=== PATIENT | male | born 1950 | race Caucasian/White ===

== ENCOUNTER 2019-07-10 09:39 | Outpatient (CLI) | payer MEDICARE, OTHER, SELFPAY ==
--- NOTE | 2019-07-10 08:52 | DI.RAD_ITS ---
EXAM: XR SHOULDER LT COMPLETE 2+V INDICATION: Left shoulder injury. COMPARISON: No exams were available for comparison TECHNIQUE: 2D digital imaging was performed. FINDINGS: There is mild spurring at the AC joint and tip of the acromion. Moderate spurring is seen at the gle noid. Glenohumeral joint space is well maintained. The humeral head is normally positioned. IMPRESSION: [id number] degenerative changes.
== END 2019-07-10 09:59 ==
PROVIDERS: PCP Family Medicine; Referring Provider Family Medicine; Visit Provider Student in an Organized Health Care Education/Training Program
DX: M25.512 Pain in left shoulder (principal); S49.92XA Unspecified injury of left shoulder and upper arm, initial encounter; M19.012 Primary osteoarthritis, left shoulder; X58.XXXA Exposure to other specified factors, initial encounter
CPT/HCPCS: 99204; 73030

== ENCOUNTER 2019-07-24 01:35 | Outpatient (CLI) | payer MEDICARE, OTHER, SELFPAY ==
--- NOTE | 2019-07-24 09:57 | DI.MRI_ITS ---
EXAM: MR UPPER JOINT LT WO CLINICAL HISTORY: Left shoulder dislocation concern for rotator cuff tear, S43.005A. TECHNIQUE: Multiplanar multisequence MRI was performed. COMPARISON: XR SHOULDER LT COMPLETE 2+V from 07/10/2019 FINDINGS: Supraspinatus tendon: There is a complete tear with retraction to the level of the acromioclavicular joint. Infraspinatus tendon: There is a large tear of the infraspinatus tendon with retraction. Teres minor tendon: There is a full-thickness large tear of the teres minor tendon with minimal retra ction. Subscapularis tendon: There is a complete tear of the subscapularis tendon with retraction to the lev el of the glenohumeral joint. Biceps tendon: The biceps tendon is intact but displaced medial to the lesser tuberosity. Findings c onsistent with a tear of the transverse ligament. Glenoid labrum: Hyperintense signal seen beneath the anterior labrum suspicious for tear. The articular cartilage at the glenohumeral joint: Appears well maintained. Coracoclavicular ligament: Unremarkable. Bones: Mild hyperintense signal is seen at the posterior aspect of the humeral head. No evidence of an occult fracture or avascular necrosis is seen. Soft tissues: There is fluid seen in the glenohumeral joint, subacromial and subdeltoid bursa. There is edema seen in the soft tissues around the shoulder. IMPRESSION: 1. Tears involving the supraspinatus, subscapularis, infraspinatus and teres minor tendons. 2. Tear of the transverse ligament with medial displacement of the biceps tendon. 3. Hyperintense signal seen beneath the anterior labrum suspicious for tear.
== END 2019-07-24 01:55 ==
PROVIDERS: PCP Family Medicine; Visit Provider Student in an Organized Health Care Education/Training Program
DX: S43.005A Unspecified dislocation of left shoulder joint, initial encounter (principal); M75.102 Unspecified rotator cuff tear or rupture of left shoulder, not specified as traumatic; S43.432A Superior glenoid labrum lesion of left shoulder, initial encounter
CPT/HCPCS: 73221

== ENCOUNTER → 2019-07-31 08:35 | Outpatient (BNVA) | payer MEDICARE, OTHER, SELFPAY | PROVIDERS: PCP Family Medicine; Referring Provider Family Medicine; Visit Provider Student in an Organized Health Care Education/Training Program | DX: M75.52 Bursitis of left shoulder; M75.42 Impingement syndrome of left shoulder; S43.005D Unspecified dislocation of left shoulder joint, subsequent encounter; S46.012D Strain of muscle(s) and tendon(s) of the rotator cuff of left shoulder, subsequent encounter; M75.22 Bicipital tendinitis, left shoulder; W01.0XXD Fall on same level from slipping, tripping and stumbling without subsequent striking against object, subsequent encounter | CPT/HCPCS: 99215 ==

== ENCOUNTER 2019-07-31 09:54 | Outpatient (CLI) | payer MEDICARE, OTHER, SELFPAY ==
[2019-07-31 11:00] LABS: Hemoglobin A1C 7.5 % (3.8-5.6)
== END 2019-07-31 10:14 ==
PROVIDERS: PCP Family Medicine; Visit Provider Student in an Organized Health Care Education/Training Program
DX: E11.9 Type 2 diabetes mellitus without complications (principal)
CPT/HCPCS: 36415; 99215; 83036

== ENCOUNTER → 2019-08-14 14:00 | Outpatient (BNVA) | payer MEDICARE, OTHER, SELFPAY | PROVIDERS: PCP Family Medicine; Referring Provider Family Medicine; Visit Provider Student in an Organized Health Care Education/Training Program | DX: S46.012D Strain of muscle(s) and tendon(s) of the rotator cuff of left shoulder, subsequent encounter (principal); S43.005D Unspecified dislocation of left shoulder joint, subsequent encounter; W01.0XXD Fall on same level from slipping, tripping and stumbling without subsequent striking against object, subsequent encounter; M75.52 Bursitis of left shoulder; M75.42 Impingement syndrome of left shoulder; M75.02 Adhesive capsulitis of left shoulder; M75.22 Bicipital tendinitis, left shoulder | CPT/HCPCS: 99215 ==

== ENCOUNTER 2019-08-22 05:56 | Day surgery (SDC) | payer MEDICARE, OTHER, SELFPAY ==
[2019-08-22] VITALS (7 sets, daily range): BP systolic 108–142; BP diastolic 55–84; PULSE 78–101; RESP 16–22; TEMP 36.2–36.6; O2SAT 94–98
[2019-08-22] MEDS: Lactated Ringers 1,000 ML 80 ML IV ×2 (06:41→12:32)
[2019-08-22] MEDS: ceFAZolin 3,000 MG in Normal Saline 100 ML 200 MG IVPB (07:35)
[2019-08-22] MEDS: Tranexamic Acid 1,000 MG/10 ML VIAL 1000 MG ×2 (09:09→11:57)
[2019-08-22] MEDS: EPINEPHrine 30 MG/30 ML VIAL (12:30)
--- NOTE | 2019-08-22 14:34 | W.PM.DSUDISC ---
Discharge Plan Disposition Patient Disposition: HOME Condition: Stable Discharge Details Reason For Visit: Left shoulder surgery Attending Provider: Anjel Schuler Primary Care Provider: Arianna Gillespie Home Meds and New Rx's Prescriptions: New naproxen 250 mg tablet 250 - 500 mg PO BID PRN (Reason: Moderate pain or swelling) Qty: 60 RF: 0 aspirin 81 mg tablet,delayed release (DR/EC) 81 mg PO DAILY 14 Days Qty: 14 RF: 0 oxycodone 5 mg tablet 5 - 10 mg PO Q4H PRN (Reason: moderate to severe pain) Qty: 22 RF: 0 Continued atorvastatin 10 mg tablet 10 mg PO DAILY RF: 0 glimepiride 2 mg tablet 2 mg PO DAILY RF: 0 metformin 1,000 mg tablet 1,000 mg PO BID RF: 0 lisinopril 5 mg tablet 5 mg PO DAILY RF: 0 dorzolamide 2 % drops 1 drp OP TID RF: 0 timolol maleate 0.5 % drops, once daily 1 drp OP DAILY RF: 0 diclofenac sodium [Voltaren] 1 % gel 2 gm TP QID RF: 0 B-Complex With B-12 2.5 mg-2.5 mg- 5 mg-100 mcg tablet 1 tab PO DAILY RF: 0 omega-3 fatty acids [Fish Oil Concentrate] 1,000 mg capsule 1,000 mg PO BID RF: 0 alpha lipoic acid 600 mg capsule 600 mg PO ONCE RF: 0 cholecalciferol (vitamin D3) 2,000 unit tablet 2,000 unit PO DAILY RF: 0 tamsulosin [Flomax] 0.4 MG capsule 0.4 mg PO HS Qty: 90 RF: 3 pregabalin [Lyrica] 75 MG capsule 150 mg PO TID RF: 0 naproxen 250 mg tablet 250 mg PO BID PRN (Reason: pain) Qty: 60 RF: 0 tramadol 50 mg tablet 100 mg PO QHS Qty: 14 RF: 0 cannabidiol 100 mg/mL Solution RF: 0 Discharge Instructions Additional Instructions: Surgery: Shoulder arthroscopy with massive open 4-tendon rotator cuff repair and biceps tenodesis Activity: You should keep your arm at your side on the abduction pillow in a neutral position at all times except for physical therapy. Do not try to lift or raise your arm using your own muscles. You should use the sling whenever you are out of the house. You may have to adjust the abduction pillow or remove it for comfort. At home it is best to remove the sling and rest the arm on a pillow at your side or support the operative side with your other hand. A physical therapy prescription will be provided separately today. Prescriptions: Aspirin 81 mg take 1 daily to prevent a blood clot for 2 weeks Naproxen 250 mg take 1-2 every 12 hours with a meal as needed for moderate pain (Or ibuprofen instead of naproxen but not at the same time) Oxycodone 5 mg take 1-2 every 4-6 hours as needed for severe pain. May switch to tramadol for less severe pain You may use [id number] Tylenol (acetaminophen) as needed for mild pain. These pain medications may be taken all at once or in different combinations as needed. Also, recommend Colace (docusate) as a stool softener as surgery and pain medicine cause constipation. Dressings: Leave dressing in place until follow-up. Keep clean and dry. Follow-up: 10-[address] Schuler Please call the office during business hours with any questions or concerns. Let us know right away if you develop any redness, drainage, fevers, chest pain, or trouble breathing. Do not drink alcohol or drive for at least 24 hours after anesthesia. Referrals: Anjel Schuler MD [ [facility] STAFF PHYSICIAN] - Discharge Orders Discharge Orders: Discharge Order (Routine); Ordered 08/22/19 Ordered By: Anjel Schuler DS: Diagnosis Discharge Diagnosis (1) Dislocation of left shoulder joint: Status: Acute (2) Left rotator cuff tear: Status: Acute (3) Bursitis of left shoulder: Status: Acute (4) Impingement syndrome of left shoulder: Status: Acute (5) Adhesive capsulitis of left shoulder: Status: Acute (6) Bankart lesion of left shoulder: Status: Acute (7) Tendinitis of long head of biceps brachii of left shoulder: Status: Acute
--- NOTE | 2019-08-22 15:17 | ROE_ITS ---
Date of service: 08/22/19 Time of Service: 14:35 Operative Note Operative Note DATE OF PROCEDURE: 08/22/19 PRE-OP DIAGNOSIS: Left: 1. Rotator cuff tear:massive involving all 4 tendons with significant medial retraction past the glenoid 2. LHB tendinopathy with dislocation into the glenohumeral joint 3. Bursitis 4. Adhesive capsulitis 5. Shoulder dislocation 6. Bankart labral lesion POST-OP DIAGNOSIS: same PROCEDURE: Left: 1. Arthroscopic extensive debridement, CPT# 06066. This involved using arthroscopic hand instruments, power instruments, and radiofrequency instruments to debride areas of labral tearing, synovitis, and chondromalacia within the glenohumeral joint anteriorly and posteriorly as well as debriding the anterior labral lesion and releasing the biceps from the superior labral anchor. 2. Subacromial decompression without acromioplasty, CPT# 61264. This involved using arthroscopic power instruments and a radiofrequency wand to complete a bursectomy and remove significant hemorrhagic, thickened, and scar bursa and adhesions about the humeral head that would be difficult to reach through the open incision especially posteriorly superiorly and medially. 3. Open biceps tenodesis, CPT# 20431. This involved reattaching the long head of the biceps tendon to the proximal humerus in situ to the superior margin of the pectoralis major tendon at the correct tension. 4. Open rotator cuff repair. Modifier #22. This involved open repair through the deltopectoral interval of the full-thickness, retracted subscapularis, supraspinatus, infraspinatus, and teres minor rotator cuff tendons using numerous anchors and sutures to reattach the the entire rotator cuff back to the footprint of the lesser and greater tuberosity. This tear meets all criteria to be defined as a massive tear as it involved all 4 rotator cuff tendons (supraspinatus, infraspinatus, teres minor, and subscapularis) with significant retraction medially past the level of the glenoid. The severity of this injury requires significantly greater complexity of repair, patient counseling, and postoperative management and rehabilitation planning and associated with substantially more surgical time, effort, and implants (approximately 4 times the usual amount of each) and associated with significant greater risk of complication including stiffness and failure. 5. Manipulation under anesthesia. The patient had significant adhesive capsulitis from from his injury. Even after working with home exercise program and formal supervised physical therapy, his passive supine forward flexion was limited to approximately 95 degrees on the operative side. Gentle steady forward flexion was used with the scapula stabilized to release adhesions which were palpable and gradually the arm stiffness softened in the arm and reached a symmetrical position with approximately 135 degrees of forward flexion equal to the contralateral side. After the manipulation there was also full symmetric internal rotation and external rotation. The high school assistant principal was medically required in order to help assist in techniques above, which require positioning the arm, holding the arthroscope, and manipulating 2 to 4 instruments and sutures at the same time. This cannot be done without the help of an experienced high school assistant principal. SURGEON: Anjel Schuler SECURITIES DEALER: Dominik Casey ANESTHESIA: GETA, regional and local ESTIMATED BLOOD LOSS: 350 PATHOLOGY: none sent COMPLICATIONS: None Patient was transported to: PACU Patient's condition: stable Implants: Arthrex: 4.75mm SwiveLocks x 10 Indications: The patient was diagnosed with the above conditions and appropriately indicated for surgical intervention. Please see complete medical record for details. Findings: Exam under anesthesia: Limited passive forward flexion in the supine position to 95 degrees. After manipulation full symmetric forward flexion 135 degrees. Also full symmetric internal rotation external rotation rate of 60 degrees each. Glenohumeral joint: Dislocated long head of the biceps tendon within the gle nohumeral joint. Anterior labral nondisplaced Bankart lesion. Extensive chondromalacia anteriorly and superiorly from the dislocated biceps tendon. Chondromalacia posterior humeral head likely from the traumatic anterior dislocation. Severe, extensive synovitis throughout anteriorly, superiorly, posteriorly, and so she was scarring axillary recess. No visible intact rotator cuff. Subacromial space: Significant, extensive hemorrhagic bursitis associate with significant scarring anteriorly, superiorly, and posteriorly. All rotator cuff tendons retracted as a sleeve of tissue past the level of the glenoid with a completely denuded humeral head. Procedure Description: The patient was taken to the operating room and transferred to the operating room table. General anesthesia was induced. While under anesthesia, bilateral shoulders were examined. The patient was positioned in the beachchair position. All bony prominences were well-padded. Preoperative antibiotics were administered. The shoulder was prepped and draped in the usual sterile fashion. The correct patient, procedure, and side of the procedure were all verified prior to incision. Starting through the posterior portal a standard complete diagnostic arthroscopy was performed of the glenohumeral joint including inspection of the long head of the biceps, anterior and superior labrum, subscapularis tendon, supraspinatus and infraspinatus tendons, and axillary recess. The glenoid and humeral head cartilage as well as the posterior labrum were inspected from an anterior viewing portal. Significant findings noted above. The biceps tendon was tenotomized from the labrum using arthroscopic scissors. The anterior labral nondisplaced Bankart lesion was debrided with a shaver. Decision was made not to repair this labral tear given significant pre-existing shoulder stiffness and inevitable stiffness and not instability at result from this massive repair. Scar tissue synovitis was sequentially removed anteriorly superiorly and posteriorly. The arthroscope was redirected in the subacromial space which in this instance meant above significant thickened hemorrhagic bursa that gave the appearance of rotator cuff tendon though it was obviously not rotator cuff at all as had no structural integrity. A lateral 50 yard line lateral portal was created. A combination of power instruments and a radiofrequency ablator were used to debride bursitis anteriorly, posteriorly, and laterally as well as expose the undersurface of the acromion. No no significant bone spur was noted and no bony acromioplasty was done. The coracoacromial ligament was preserved. Working from posteriorly and laterally this extensive bursa scarring was removed to expose the humeral head that had no rotator cuff tendon attachment on it anteriorly superiorly or posteriorly. The lesser and greater tuberosities were clearly visible. Cuff mobilizers and graspers were used to localize the rotator cuff which was entirely retracted as 1 whole sleeve medial to the glenoid and had limited mobility. At this point the decision was made to convert to open repair given the severity of this injury and the significantly retracted and scarred rotator cuff tendons and difficulty with visualization given significant failure and hemorrhagic bursa and scarring throughout. Shoulder was drained of arthroscopic fluid. 1 g of TXA was administered. A standard deltopectoral incision was used. Care was taken to mobilize and protect the cephalic vein medially with the deltoid. There is significant scarring and adhesions overlying the proximal humerus including the long head the biceps tendon. There is no visible rotator cuff tendon. The biceps tendon was notified at the superior margin of the pectoralis major tendon and tenodesed with #2 FiberWire in a [id number] fashion in situ here. The remainder of the biceps tendon was dislocated medially but used to identify a safe rotator interval approach to begin removing more scar tissue and bursa. Finger dissection was used to palpate the the coracoid and identify a significantly retracted subscapularis tendon margin. #2 FiberWire was used to tag the leading edge of the subscapularis in a Bebeto-Jamal fashion. These sutures were used as traction and finger blunt dissection as well as careful Gutierrez dissection was used to release the subscapularis anteriorly and posteriorly. As excursion improved additional #2 FiberWire sutures were used in Bebeto-Jamal suture fashion. Sutures were placed from the most inferior margin of the identifiable subscapularis up to the rotator interval. At this point there was enough excursion for the subscapularis that the supraspinatus was becoming visible. The lesser and greater tuberosity as well as the entire rotator cuff footprint was debrided of scar tissue and fibrous debris using a rongeur. In a similar fashion #2 FiberWire Bebeto-Jamal stitches were thrown in the supraspinatus and these were used as traction stitches while digital release and Gutierrez release was performed above and below the tendon. Additional traction sutures and supraspinatus allowed reduction provisionally to its footprint and also started to bring the infraspinatus into view. With the humeral head subluxed anteriorly and an internal rotation the infraspinatus was similarly tagged with #2 Fi berWire. The scorpion suture passer was used to pass fiber tape in an inverted horizontal mattress fashion starting with the supraspinatus and then with the infraspinatus. These were additionally uses traction sutures and releasing was completed. I felt we had the majority of the subscapularis, supraspinatus, and infraspinatus well sutured and released. Using scorpion to pass additional FiberWire and fiber tape in a mattress ripstop fashion through the most posterior rotator cuff tissue I could access which likely represented teres minor. The arm was positioned in a more neutral position with some abduction for the medial row repair. Without placing undue tension on the rotator cuff 4 medial row anchors were placed starting with the anterior supraspinatus and working posteriorly to the infraspinatus. The most posterior likely teres minor anchor was placed through a stab percutaneous portal more posteriorly. Each of these anchors contained at least 2 pairs of #2 FiberWire Bebeto-Jamal sutures. The sutures were placed near the articular margin anteriorly and then more was left between the suture anchors and the articular margin as went posteriorly to reflect normal anatomy. The FiberWire that was loaded in the anchors was then passed using the scorpion from deep to superficial just medial to each respective FiberTape horizontal mattress suture for additional ripstop fixation. Each FiberTape pair and corresponding medial FiberWire was then secured to a lateral row anchor going from posterior to anterior except for the most posterior pair that were joined together to the posterior most lateral row anchor for total of 3 additional lateral row anchors. Achieving compression of the rotator cuff tendon over the majority of the posterior and superior rotator cuff footprint as post of the reduction reduction had already been achieved through the medial row anchors. At this point the arm was returned to a more neutral position taking care to ensure the arm was in approximately 20 degrees of external rotation for the later subscapularis repair. Attention was then turned back to the lesser the subscapularis repair. Exposure of the subscapularis was now assisted by the reduced superior rotator cuff. Subscapularis had 2 pairs of #2 FiberWire Bebeto-Jamal sutures as well as a mattress fiber tape and a superior margin. This was repeated more inferiorly. Each pair of 4 fiber wires was secured to a superior and inferior medial row subscapularis anchor. The preloaded FiberWire sutures could not be passed under the rotator cuff as it was so well secured at this point and there was no more rotator cuff defect so they were removed. Both pairs subscapularis mattress fiber tapes were brought over to a lateral row lesser tuberosity anchor. The repair was inspected from anteriorly superiorly and posteriorly throughout the humeral head was covered with a well attached, secure rotator cuff tendon. The arm was ranged from 50 degrees of external rotation to 90 degrees of abduction and 90 degrees of forward flexion and the rotator cuff repair did not limit this motion, was well secured, and appeared to have good compression over all the footprints. There is no further instability or anterior subluxation dislocation. The arm was returned to the side and the wound was copiously irrigated with normal saline. 1 g of vancomycin powder was distributed deeply about the wound. 40 cc of 0.25% bupivacaine containing epinephrine was infiltrated about the incision. Antibiotics and TXA have been readministered at the appropriate time patterson. The deltopectoral interval was allowed to close itself had good apposition of the tissues the cephalic vein was not traumatized. Subcutaneous tissue was closed using 2-0 Monocryl in a buried interrupted fashion. Skin was closed using 3-0 Monocryl in a buried subcuticular running fashion. Skin glue was applied over the incision. All portal sites were closed using 3-0 Monocryl in a buried fashion and covered with Steri-Strips on Mastisol 4 x 4 gauze and Tegaderm. A silver impregnated Band-Aid was placed over the anterior incision. The arm was carefully placed into a sling with abduction pillow to keep the shoulder in neutral position and reduce tension on the rotator cuff. The patient awoke from anesthesia without complication and was transferred to the recovery room in a stable condition
[2019-08-22] MEDS: Lidocaine 2% Jelly 11 ML SYR 22 ML UR (17:00)
--- NOTE | 2019-08-22 17:38 | NUR.NOTE ---
Addendum entered by Cody Palomo 08/22/19 18:08: Leg bag attached, education on martin given. Demonstration on how to empty martin given to Mira and pt. Original Note: 4 unsuccessful catheterization attempts, call made to speciality clinics for assistance in martin placement. Pt. martin catheter placed by Sammi Kennedy. [address] Schuler ordered martin to go home with pt., and referral to Dr. Garcia's office to be made by ortho office. Pt. to followup with Urology, and Ortho tomorrow 08/23/19. All in agreeance of plan. Nursing Note:
== END 2019-08-22 18:10 | disposition home or self-care (01) ==
PROVIDERS: PCP Family Medicine; Visit Provider Student in an Organized Health Care Education/Training Program
PROC: (CPT 29827; principal; 2019-08-22 07:30)
PROC: (CPT 23430; 2019-08-22 07:30)
DX: S46.012A Strain of muscle(s) and tendon(s) of the rotator cuff of left shoulder, initial encounter (principal); S43.432A Superior glenoid labrum lesion of left shoulder, initial encounter; S46.192A Other injury of muscle, fascia and tendon of long head of biceps, left arm, initial encounter; M75.52 Bursitis of left shoulder; M75.02 Adhesive capsulitis of left shoulder; S43.005D Unspecified dislocation of left shoulder joint, subsequent encounter; W17.89XA Other fall from one level to another, initial encounter; S43.492A Other sprain of left shoulder joint, initial encounter; M94.212 Chondromalacia, left shoulder; Z53.33 Arthroscopic surgical procedure converted to open procedure; E11.9 Type 2 diabetes mellitus without complications; G89.18 Other acute postprocedural pain
CPT/HCPCS: 23430; 23410; 29823; 29826; 23700; C1713; 76942; L3670; J0690; J1100; J1885; J2001; J2250; J2370; J2405; J2704

== ENCOUNTER → 2019-08-26 09:05 | Outpatient (BNVA) | payer MEDICARE, OTHER, SELFPAY | PROVIDERS: PCP Family Medicine; Referring Provider Family Medicine; Visit Provider Nurse Practitioner Gerontology | DX: N99.89 Other postprocedural complications and disorders of genitourinary system (principal) | CPT/HCPCS: 99202; 99212; 99213 ==

== ENCOUNTER → 2019-09-03 09:33 | Outpatient (BNVA) | payer MEDICARE, OTHER, SELFPAY | PROVIDERS: PCP Family Medicine; Referring Provider Family Medicine; Visit Provider Student in an Organized Health Care Education/Training Program | DX: S43.005D Unspecified dislocation of left shoulder joint, subsequent encounter (principal); S46.012D Strain of muscle(s) and tendon(s) of the rotator cuff of left shoulder, subsequent encounter; M75.52 Bursitis of left shoulder; M75.42 Impingement syndrome of left shoulder; M75.02 Adhesive capsulitis of left shoulder; S43.492A Other sprain of left shoulder joint, initial encounter; M75.22 Bicipital tendinitis, left shoulder ==

== ENCOUNTER → 2019-11-14 10:12 | Outpatient (BNVA) | payer MEDICARE, OTHER, SELFPAY | PROVIDERS: PCP Family Medicine; Visit Provider Student in an Organized Health Care Education/Training Program | DX: S46.012D Strain of muscle(s) and tendon(s) of the rotator cuff of left shoulder, subsequent encounter (principal); M75.52 Bursitis of left shoulder; M75.42 Impingement syndrome of left shoulder; M75.22 Bicipital tendinitis, left shoulder; S43.005D Unspecified dislocation of left shoulder joint, subsequent encounter; M75.02 Adhesive capsulitis of left shoulder; S43.492D Other sprain of left shoulder joint, subsequent encounter; X58.XXXD Exposure to other specified factors, subsequent encounter ==

== ENCOUNTER 2019-12-24 14:53 | Outpatient (CLI) | payer MEDICARE, OTHER, SELFPAY ==
--- NOTE | 2019-12-24 14:50 | DI.RAD_ITS ---
EXAM: XR SHOULDER LT COMPLETE 2+V CLINICAL HISTORY: SHOULDER PAIN TECHNIQUE: COMPARISON: CR XR SHOULDER LT COMPLETE 2+V from 07/10/2019 FINDINGS: Two views were obtained. Note is made elongated calcifications projected posterior to humeral. Ther e are lucencies in the humeral head suggesting prior surgical procedure, please correlate clinically. Small calcific or ossific radiodensities also seen adjacent to supraspinatus insertion. Mild stuart nal osteophyte formation glenoid and humeral head noted. Mild hypertrophic changes of the AC joint n oted. IMPRESSION: Degenerative changes, presumed postsurgical changes. Please correlate clinically.
== END 2019-12-24 15:13 ==
PROVIDERS: PCP Family Medicine; Referring Provider Family Medicine; Visit Provider Student in an Organized Health Care Education/Training Program
DX: M25.512 Pain in left shoulder (principal); M19.012 Primary osteoarthritis, left shoulder; S43.005D Unspecified dislocation of left shoulder joint, subsequent encounter; S46.012D Strain of muscle(s) and tendon(s) of the rotator cuff of left shoulder, subsequent encounter; S43.492D Other sprain of left shoulder joint, subsequent encounter; X58.XXXD Exposure to other specified factors, subsequent encounter; M75.52 Bursitis of left shoulder; M75.42 Impingement syndrome of left shoulder; M75.02 Adhesive capsulitis of left shoulder; M75.22 Bicipital tendinitis, left shoulder
CPT/HCPCS: 99214; 73030

== ENCOUNTER 2019-12-27 10:13 | Outpatient (CLI) | payer MEDICARE, OTHER, SELFPAY ==
--- NOTE | 2019-12-27 09:30 | DI.MRI_ITS ---
EXAM: MR UPPER JOINT LT WO CLINICAL HISTORY: concern for significant re-tear of RCR,S/P MASSIVE ROTATOR CUFF REPAIR. TECHNIQUE: Multiplanar multisequence MRI was performed. COMPARISON: MR MR UPPER JOINT LT WO from 07/24/2019 FINDINGS: MR examination of the shoulder was performed according to the usual protocol. The patient has report edly had massive rotator cuff tear with rotator cuff repair in August of this year. Bones: There are multiple fixation screws in the humeral head and neck. There are linear and serpigi nous areas of abnormal signal which traverse the greater tuberosity and significant portions of the s ub articular cortex and marrow suggesting a complex nondisplaced fracture with some cortical fragment ation. There are hypertrophic marginal osteophytes of the glenoid. There are moderate hypertrophic degenera tive changes of the acromioclavicular joint. Labrum: There is apparent tear/deficiency of anterior glenoid labrum, effacement of posterior and inf erior labrum, also possibly torn. Rotator cuff: Subscapularis, there is abnormal signal in subscapularis muscle consistent with some fa tty replacement, less than 50 percent. There appears to be a full-thickness retracted retear of the sub scapularis tendon. Supraspinatus, there is greater than 50 percent fatty atrophy of supraspinatus muscle, there is marke d thinning of remaining repaired tendon with probable sub total full-thickness retear, some portions of the repaired tendon may be intact particularly posteriorly tendon. Infraspinatus, there is abnormal signal of infraspinatus muscle, probable less than 50 percent fatty replacement. There is minor partial thickness re-tear in of apparent repaired tendon. No retraction . Teres minor, probably intact tendon with mild muscle fatty replacement. Biceps tendon: Apparent repaired biceps tendon remains attached to humeral neck with significant abno rmal signal and thickening of [place] attachment portion of the tendon. Deltoid muscle: Mildly abnormal signal of posterior belly of the deltoid. Markedly abnormal signal s een T2 fat sat imaging anterior belly of the deltoid may represent contusion there may be partial thi ckness tearing of scapular attachment of the anterior belly. Please correlate clinically. IMPRESSION: Significant retear of repaired rotator cough with probable complete retear and retraction of subscapu eyal component and subtotal retear of markedly thinned supraspinatus component. Greater than 50 per cent fatty replacement of supraspinatus muscle, less than 50 percent fatty replacement infraspinatus and subscapularis. Anterior labral tear noted. Findings suggesting nondisplaced fracture through humeral head associated with multiple fixation scre ws. Contusion/tear, anterior belly of the deltoid. DATA REPOSITORY:
== END 2019-12-27 10:33 ==
PROVIDERS: PCP Family Medicine; Visit Provider Student in an Organized Health Care Education/Training Program
DX: S43.492A Other sprain of left shoulder joint, initial encounter (principal); S46.012A Strain of muscle(s) and tendon(s) of the rotator cuff of left shoulder, initial encounter; S42.295A Other nondisplaced fracture of upper end of left humerus, initial encounter for closed fracture; S43.432A Superior glenoid labrum lesion of left shoulder, initial encounter
CPT/HCPCS: 73221

== ENCOUNTER → 2019-12-30 11:02 | Outpatient (BNVA) | payer MEDICARE, OTHER, SELFPAY | PROVIDERS: PCP Family Medicine; Referring Provider Family Medicine; Visit Provider Student in an Organized Health Care Education/Training Program | DX: S43.005D Unspecified dislocation of left shoulder joint, subsequent encounter (principal); S46.012D Strain of muscle(s) and tendon(s) of the rotator cuff of left shoulder, subsequent encounter; S43.492D Other sprain of left shoulder joint, subsequent encounter; X58.XXXD Exposure to other specified factors, subsequent encounter; M75.52 Bursitis of left shoulder; M75.42 Impingement syndrome of left shoulder; M75.02 Adhesive capsulitis of left shoulder; M75.22 Bicipital tendinitis, left shoulder | CPT/HCPCS: 99214 ==

== ENCOUNTER → 2020-02-18 08:00 | Outpatient (BNVA) | payer MEDICARE, OTHER, SELFPAY | PROVIDERS: PCP Family Medicine; Referring Provider Family Medicine; Visit Provider Student in an Organized Health Care Education/Training Program | DX: S46.012D Strain of muscle(s) and tendon(s) of the rotator cuff of left shoulder, subsequent encounter (principal); S43.005D Unspecified dislocation of left shoulder joint, subsequent encounter; S43.492D Other sprain of left shoulder joint, subsequent encounter; X58.XXXD Exposure to other specified factors, subsequent encounter; M75.52 Bursitis of left shoulder; M75.42 Impingement syndrome of left shoulder; M75.02 Adhesive capsulitis of left shoulder; M75.22 Bicipital tendinitis, left shoulder | CPT/HCPCS: 99213 ==

== ENCOUNTER 2020-06-02 08:48 | Outpatient (CLI) | payer MEDICARE, OTHER, SELFPAY ==
--- NOTE | 2020-06-02 08:00 | DI.RAD_ITS ---
EXAM: XR SHOULDER LT COMPLETE 2+V CLINICAL HISTORY: F/u TECHNIQUE: COMPARISON: CR XR SHOULDER LT COMPLETE 2+V from 12/24/2019 FINDINGS: Three views were obtained. The humeral head is subluxed anteriorly as visualized on the axillary vie w. This may be related to retear of sub scapularis as noted on MRI of December 26. Osseous or calcifi c radiodensity again noted posterior to the humeral head on the Y-view. Areas decreased bone density noted again in the humeral head consistent with prior surgical procedures. Moderate marginal osteop hytes of the acromioclavicular joint and glenohumeral joint noted. IMPRESSION: Mild degenerative changes, anterior humeral subluxation noted. RADIATION DOSE DELIVERED: Total DLP Total DLP
== END 2020-06-02 09:08 ==
PROVIDERS: PCP Family Medicine; Referring Provider Family Medicine; Visit Provider Student in an Organized Health Care Education/Training Program
DX: S43.012A Anterior subluxation of left humerus, initial encounter (principal); M19.012 Primary osteoarthritis, left shoulder; Z47.89 Encounter for other orthopedic aftercare; M75.52 Bursitis of left shoulder; M65.332 Trigger finger, left middle finger; M65.342 Trigger finger, left ring finger; E11.9 Type 2 diabetes mellitus without complications
CPT/HCPCS: 99214; 73030

== ENCOUNTER 2020-06-12 06:12 | Day surgery (SDC) | payer MEDICARE, SELFPAY ==
[2020-06-12 06:37] VITALS: BP 126/72; PULSE 86; RESP 18; TEMP 36.3; O2SAT 95
[2020-06-12] MEDS: Lactated Ringers 1,000 ML 100 ML IV (06:59)
[2020-06-12] MEDS: ceFAZolin 2 GM/50 ML BAG IVPB (07:30)
--- NOTE | 2020-06-12 08:39 | W.PM.DSUDISC ---
Discharge Plan Disposition Patient Disposition: HOME Condition: Stable Discharge Details Reason For Visit: Left hand triggers fingers Attending Provider: Anjel Schuler Primary Care Provider: Arianna Gillespie Home Meds and New Rx's Prescriptions: New ibuprofen 800 mg tablet 800 mg PO BID PRN (Reason: pain, moderate) Qty: 60 RF: 0 tramadol 50 mg Tablet 50 mg PO Q8H PRN PRN (Reason: severe pain) Qty: 5 RF: 0 Continued meloxicam 15 mg tablet 15 mg PO DAILY PRN (Reason: Shoulder pain) Qty: 90 RF: 0 atorvastatin 10 mg tablet 10 mg PO DAILY RF: 0 glimepiride 2 mg tablet 2 mg PO DAILY RF: 0 metformin 1,000 mg tablet 1,000 mg PO BID RF: 0 lisinopril 5 mg tablet 5 mg PO DAILY RF: 0 dorzolamide 2 % drops 1 drp OP TID RF: 0 diclofenac sodium [Voltaren] 1 % gel 2 gm TP QID RF: 0 B-Complex With B-12 2.5 mg-2.5 mg- 5 mg-100 mcg tablet 1 tab PO DAILY RF: 0 omega-3 fatty acids [Fish Oil Concentrate] 1,000 mg capsule 1,000 mg PO BID RF: 0 alpha lipoic acid 600 mg capsule 600 mg PO ONCE RF: 0 cholecalciferol (vitamin D3) 2,000 unit tablet 2,000 unit PO DAILY RF: 0 alprazolam 0.5 mg tablet 0.5 mg PO ONCE PRN (Reason: Claustrophobia) Qty: 2 RF: 0 tamsulosin [Flomax] 0.4 MG capsule 0.4 mg PO HS Qty: 90 RF: 3 pregabalin [Lyrica] 75 MG capsule 150 mg PO TID RF: 0 cannabidiol 100 mg/mL Solution RF: 0 Discharge Instructions Additional Instructions: Surgery: Left hand long and ring finger trigger releases Activity: Weightbearing as tolerated. Encourage progressive gentle to full active range of motion all fingers and hand. Avoid heavy manual work with the hand for 2 to 3 weeks. Prescriptions: Ibuprofen 800 mg take 1 every 12 hours with a meal as needed for moderate pain Tramadol 50 mg take 1 every 8 hours as needed for severe pain You may use [id number] Tylenol (acetaminophen) as needed for mild pain. These pain medications may be taken all at once or in different combinations as needed. Also, recommend Colace (docusate) as a stool softener as surgery and pain medicine cause constipation. Dressings: Leave dressing in place for 3 days. May then remove and leave open to air or cover incisions with Band-Aids. May get wet after 5 days. Follow-up: 10-[address] Schuler Let us know right away if you develop any redness, drainage, fevers, chest pain, or trouble breathing. Do not drink alcohol or drive for at least 24 hours after anesthesia. Please call the office during business hours with any questions or concerns. Referrals: Anjel Schuler MD [ [facility] STAFF PHYSICIAN] - Discharge Orders Discharge Orders: Discharge Order (Routine); Ordered 06/12/20 Ordered By: Anjel Schuler DS: Diagnosis Discharge Diagnosis (1) Trigger finger, left ring finger: Status: Acute (2) Trigger finger, left middle finger: Status: Acute
--- NOTE | 2020-06-12 08:45 | ROE_ITS ---
Date of service: 06/12/20 Time of Service: 08:40 Operative Note Operative Note DATE OF PROCEDURE: 06/12/20 PRE-OP DIAGNOSIS: 1. Left hand ring trigger finger 2. Left hand long finger trigger finger POST-OP DIAGNOSIS: same PROCEDURE: 1. Left ring finger trigger release, CPT# 58356 2. Left long finger trigger release, CPT# 27389 SURGEON: Anjel Schuler [employer]QU[employer] F[employer]OR [employer] WALL APPLIER: Lori Nieves ANESTHESIA: local ESTIMATED BLOOD LOSS: 3 TOURNIQUET TIME: 0 COMPLICATIONS: None Patient was transported to: PACU Patient's condition: stable Implants: None Indications: Please see complete medical record for details. Procedure Description: In the operating room, the patient was positioned supine on the operating room table. All bony prominences were well-padded. Preoperative antibiotics were administered. Local anesthesia was induced about the surgical site containing 9 cc of 1% lidocaine containing epinephrine and 1 cc of sodium bicarbonate. The left hand was prepped and draped in the usual sterile fashion. The correct patient, procedure, and side of the procedure were all verified prior to incision. Direct longitudinal approach was taken volarly centered about the MCP joint. Combination of sharp and blunt dissection was used to retract soft tissues and expose the A1 cheyanne. Scalpel blade was used to incise the cheyanne completely from proximal to distal taking care to perform a complete release, which was verified with appropriate tendon excursion from the wound and spreading proximally distally with hemostats taps, while avoiding injury to the flexor tendons. Next, a similar longitudinal approach was taken to the long finger. This A1 cheyanne was exposed as well in a similar fashion. The A1 cheyanne to the long finger was then incised sharply again from proximal to distal and appropriate release confirmed tendon excursion from the wound and spreading throughout with hemostats. Appropriate hemostasis was achieved. The patient had excellent analgesia and pain control. Each wound was irrigated with normal saline. 4-0 nylon was used to close each incision in horizontal mattress fashion. Incisions were covered Xeroform, dry for 4 gauze, and the hand is wrapped gentle compressive Sunil bandage. Patient tolerated the procedure well without complication and was transferred back to day surgery in stable condition.
== END 2020-06-12 09:00 | disposition home or self-care (01) ==
PROVIDERS: PCP Family Medicine; Visit Provider Student in an Organized Health Care Education/Training Program
PROC: (CPT 26055; principal; 2020-06-12 07:30)
DX: M65.342 Trigger finger, left ring finger (principal); M65.332 Trigger finger, left middle finger
CPT/HCPCS: 26055 ×2; J0690

== ENCOUNTER → 2020-06-23 09:44 | Outpatient (BNVA) | payer MEDICARE, SELFPAY | PROVIDERS: PCP Family Medicine; Referring Provider Family Medicine; Visit Provider Student in an Organized Health Care Education/Training Program | DX: Z47.89 Encounter for other orthopedic aftercare (principal); M65.342 Trigger finger, left ring finger; M65.332 Trigger finger, left middle finger; M75.52 Bursitis of left shoulder ==

== ENCOUNTER 2020-11-18 09:20 | Outpatient (CLI) | payer MEDICARE, SELFPAY ==
--- NOTE | 2020-11-18 09:00 | DI.RAD_ITS ---
Exam(s) XR SHOULDER LT COMPLETE 2+V EXAM: XR SHOULDER LT COMPLETE 2+V CLINICAL HISTORY: f/u. TECHNIQUE: 2D digital imaging was performed. COMPARISON: MR MR UPPER JOINT LT WO from 12/27/2019 FINDINGS: There are lucencies in the humeral head consistent with prior surgery. There is no evidence of acute fracture nor dislocation but there is moderate diminution of the subacr omial space which probably indicates rotator cuff pathology. Mild degenerative changes are noted in the glenohumeral joint. In addition, there is a 4.8 cm by 0.5 cm calcific density seen posterior to the humeral head-neck whi ch is either a bone spicule or dystrophic type calcification related to capsular structure. IMPRESSION: DATA REPOSITORY: RADIATION DOSE DELIVERED:
== END 2020-11-18 09:21 | disposition home or self-care (01) ==
LOC: DIORS 09:20
PROVIDERS: PCP Family Medicine; Referring Provider Family Medicine; Visit Provider Student in an Organized Health Care Education/Training Program
DX: S46.012D Strain of muscle(s) and tendon(s) of the rotator cuff of left shoulder, subsequent encounter (principal); X58.XXXD Exposure to other specified factors, subsequent encounter; M75.52 Bursitis of left shoulder; M75.42 Impingement syndrome of left shoulder; M75.02 Adhesive capsulitis of left shoulder; M75.22 Bicipital tendinitis, left shoulder
CPT/HCPCS: 99213; 73030

== ENCOUNTER 2021-06-18 12:59 | Outpatient (REF) | payer MEDICARE, SELFPAY ==
--- NOTE | 2021-06-18 12:05 | SKI_PTH ---
PATIENT: Wilfred Das LOC: [facility] U#:[id number] AGE/SX: 70/M ROOM: RE06/18/[address]: HECTOR Roa : 1950 BED: DIS: 06/18/2021 SPEC #: [id number] RECD: 06/18/21 18:01 STATUS: ANIVAL RESylvia #: [id number] PIA: 06/18/21 12:[address]: Marvin Stringer DEPT: Surgical Specimen RECD BY: Nedra Johnson ENTERED: 06/18/21 18:01 SP TYPE: JIL FITCH DR: Arianna Gillespie Tissues: 1 - SKIN BIOPSY(SHAVE/PUNCH) Procedures: SKIN LEVEL 4 Comments: [id number]
== END 2021-06-18 13:00 | disposition home or self-care (01) ==
LOC: LBN 12:59
PROVIDERS: PCP Family Medicine; Visit Provider Physician Assistant
DX: C44.519 Basal cell carcinoma of skin of other part of trunk (principal)
CPT/HCPCS: 88305

== ENCOUNTER 2021-12-16 09:47 | Outpatient (CLI) | payer MEDICARE, SELFPAY ==
--- NOTE | 2021-12-16 09:30 | DI.RAD_ITS ---
Exam(s) XR SHOULDER RT COMPLETE 2+V EXAM: XR SHOULDER RT COMPLETE 2+V CLINICAL HISTORY: pain. TECHNIQUE: 2D digital imaging was performed. COMPARISON: MR MR UPPER JOINT LT WO from 12/27/2019 CR XR SHOULDER LT COMPLETE 2+V from 11/18/2020 FINDINGS: 3 views There is no evidence of fracture or dislocation. Calcification noted in the soft tissues adjacent to the humeral head the subacromial space consistent rotator cuff tendinitis-tendinosis. Subacromial s pace itself does not appear to be significantly diminished but there are moderate degenerative change s the glenohumeral and AC joints evident. Bone density normal. No osseous lesions IMPRESSION: DATA REPOSITORY: RADIATION DOSE DELIVERED:
--- NOTE | 2021-12-16 09:30 | DI.RAD_ITS ---
Exam(s) XR KNEE LT 3V AP,LAT,LINETTE EXAM: XR KNEE LT 3V AP,LAT,LINETTE CLINICAL HISTORY: pain. TECHNIQUE: 2D digital imaging was performed. COMPARISON: CR RIGHT KNEE LIMITED 1 OR 2 VIEW from 06/03/2015 FINDINGS: 3 views No evidence fracture although there is significant joint effusion evident in the suprapatellar bursa. On the weight-bearing view there is [id number] narrowing of the medial compartment varus deformity. Lateral compartment exhibits normal height. Some degenerative change also noted patellofemoral. IMPRESSION: Degenerative change, most prominent in medial compartment. DATA REPOSITORY: RADIATION DOSE DELIVERED:
== END 2021-12-16 09:48 | disposition home or self-care (01) ==
LOC: DIORS 09:47
PROVIDERS: PCP Family Medicine; Referring Provider Family Medicine; Visit Provider Physician Assistant Surgical
DX: M75.81 Other shoulder lesions, right shoulder; M17.12 Unilateral primary osteoarthritis, left knee
CPT/HCPCS: 20610; 73562; 73030; J1040

== ENCOUNTER → 2022-03-31 03:44 | Outpatient (CLI) | payer MEDICARE, SELFPAY ==
--- NOTE | 2022-03-31 08:15 | DI.RAD_ITS ---
Exam(s) RF JOINT INJECTION FLUORO GUID EXAM: RF JOINT INJECTION FLUORO GUID CLINICAL HISTORY: pain, rt rotator cuff tendonitis, fluoro guided injection,m75.81 TECHNIQUE: 2D and realtime digital imaging was performed. CONTRAST MATERIAL: Water soluble contrast was administered. COMPARISON: No exams were available for comparison FINDINGS: Fluoroscopy was provided for Dr. Meier during the performance of a right shoulder injection. Ple ase refer to the procedure report for complete details. IMPRESSION: RADIATION DOSE DELIVERED: bethany Lara=1.81 mGy
[2022-03-31] MEDS: Omnipaque 300 MG/ML 10 ML BTL IJ (13:57)
[2022-03-31] MEDS: Bupivacaine 0.5% Pres-Free 10 ML VIAL IJ (13:58)
[2022-03-31] MEDS: methylPREDNISolone ACETATE 80 MG/ML VIAL IM (13:58)
--- NOTE | 2022-03-31 14:00 | W.PROCNOTE ---
Date of service: 03/31/22 Time of Service: 13:55 Procedure Note Date of procedure: 03/31/22 Procedure: Right Shoulder Injection Surgeon/Proceduralist/Physician: Israel Meier Procedure Diagnosis: Right Shoulder Pain Procedure Indications: Wilfred has had persistent pain of the RIGHT shoulder. Noninvasive measures have been tried. To serve as both diagnostic and therapeutic, an injection under fluoroscopy was recommended. I had discussed the risks of the procedure and the patient elected to proceed. Procedure Description: Wilfred was greeted in the flouroscopy room. The correct side was identified and the consent was reviewed with the patient and signed. The patient was then placed in the supine position on the fluoroscopy table. The RIGHT shoulder was then prepped with Chloraprep. The anterior injection starting point was identiifed by bony landmarks and fluoroscopy. The skin and soft tissue in the tract of the injection was anesthetized with 1% Lidocaine. A spinal needle was then inserted deep into the shoulder joint at the level of the recess between the glenoid and superior humeral head. A small amount of Omnipaque solution was injected to confirm intraarticular placement. Once confirmed, the shoulder was injected with 5cc of 0.5% Bupivicaine and 80mg of Depo-Medrol. A bandaid was placed on the injection site. The patient tolerated the procedure well and noted improvement in pre-injection pain.
== END ==
PROVIDERS: PCP Family Medicine; Visit Provider Student in an Organized Health Care Education/Training Program
DX: M75.81 Other shoulder lesions, right shoulder (principal)
CPT/HCPCS: 20610; 77002; J1040

== ENCOUNTER 2022-04-12 13:03 | Emergency (ER) | payer MEDICARE, SELFPAY ==
[2022-04-12 13:15] VITALS: BP 147/68; PULSE 85; RESP 18; TEMP 36.6; O2SAT 96
--- NOTE | 2022-04-12 15:15 | DI.RAD_ITS ---
Exam(s) XR CHEST 2V PA LATERAL EXAM: XR CHEST 2V PA LATERAL CLINICAL HISTORY: RUQ abd pain TECHNIQUE: COMPARISON: CR XR SHOULDER LEFT from 07/08/2019 FINDINGS: Heart is not enlarged. There is a right pleural effusion as noted on today's CT examination. Lungs appear grossly clear except for mild atelectasis at the right lung base. IMPRESSION: Right pleural effusion, nonspecific. Please see accompanying abdominal CT report. RADIATION DOSE DELIVERED: Total DLP
--- NOTE | 2022-04-12 15:19 | W.ED.GENAD ---
Discharge Plan Disposition Patient Disposition: HOME Condition: Stable Discharge Details Clinical Impression: Pleural effusion, right, Lesion of liver Primary Care Provider: None,None ED Provider: Kelsey Potter Home Meds and New Rx's Prescriptions: New oxycodone 5 mg capsule 5 mg PO Q8H PRN (Reason: pain) Qty: 10 0RF Rx Instructions: Take 1 tablet up to 3 times daily as needed for moderate to severe pain. Please take with food no driving Continued meloxicam 15 mg tablet 15 mg PO DAILY PRN (Reason: Shoulder pain) Qty: 90 0RF duloxetine 30 mg capsule,delayed release(DR/EC) 30 mg PO DAILY clopidogrel 75 mg tablet 75 mg PO DAILY losartan 25 mg tablet 12.5 mg PO DAILY magnesium oxide 500 mg capsule 250 mg PO DAILY vitamin B complex Tablet 1 tab PO DAILY Trulicity 3 mg/0.5 mL pen injector 3 mg subcut QWEEK atorvastatin 10 mg tablet 10 mg PO DAILY glimepiride 2 mg tablet 2 mg PO DAILY metformin 1,000 mg tablet 1,000 mg PO BID dorzolamide 2 % drops 1 drp OP TID diclofenac sodium [Voltaren] 1 % gel 2 gm TP QID B-Complex With B-12 2.5 mg-2.5 mg- 5 mg-100 mcg tablet 1 tab PO DAILY omega-3 fatty acids [Fish Oil Concentrate] 1,000 mg capsule 1,000 mg PO BID alpha lipoic acid 600 mg capsule 600 mg PO ONCE cholecalciferol (vitamin D3) 2,000 unit tablet 2,000 unit PO DAILY tamsulosin [Flomax] 0.4 MG capsule 0.4 mg PO HS Qty: 90 pregabalin [Lyrica] 75 MG capsule 150 mg PO TID ibuprofen 800 mg tablet 800 mg PO BID PRN (Reason: pain, moderate) Qty: 60 0RF Discharge Instructions Instructions: Pleural Effusion (ED) Additional Instructions: At this time he has multiple lesions noted in your liver. These need further evaluation. He also have some fluid in your right lung space. Please follow-up with general surgery Dr. Strickland who I contacted about your case within the next week. Please keep your appointment with your primary care provider as well. Take the pain medication as directed. Do not take any Tylenol or any medications if possible that are metabolized in your liver. Follow up with primary care provider in 3-5 days. Return to ED sooner if any worsening or concerns. Increase oral fluids. Referrals: Janine Strickland DO [OSTEOPATHIC DOCTOR] - 5 days Medical Decision Making 71-year-old male presents to the ER with chief complaint of right upper quadrant abdominal pain which radiates into the back for approximately 2 months. Patient has been being worked up at [facility] had a recent MRI of his abdomen 1 week ago. reports that an ultrasound noted 2 lesions on his liver. He does report he has a history of gallstones. Labs ordered including a lipase and urinalysis. Will order chest x-ray and consider CT abdomen pelvis. Discussed CT results and lab results with patient and family verbalized understanding. At this time I was unable to acquire records from [facility] to compare. He does have elevated transaminases AST is 224, ALT 445 alk phos is 451 glucose is [address] shows hypodense lesions within the hepatic lobe adjacent to the gallbladder. And a moderate sized right pleural effusion. I consulted with Dr. Strickland who is a general surgeon on-call regarding patient case and details she was able to personally view the CT. She recommends follow-up in her office on . I did discuss the plan with the patient and family who verbalized understanding. She had an on a couple more labs prior to patient being discharged. Patient sent home with oxycodone for pain management. He verbalizes understanding. Patient denies any known history of cancer however he does have a history of basal cell skin cancer. This text was generated using [employer] dictation system, please disregard any oddities of phrase or misspellings. Medical Records Medical records reviewed: Yes I reviewed the patient's medical records. Imaging Data Radiologic Study: Imaging: CT Scan Radiologist's impression: IMPRESSION: 1. Moderate-sized right pleural effusion with associated atelectasis. 2. Multiple hypodense lesions throughout the liver, with conglomeration of hypodense lesions within the medial segment left hepatic lobe, adjacent to the gallbladder, measuring in total 4.9 x 3.5 cm (series 5, image 266). Lesions most compatible with metastatic disease. Process such as cholangiocarcinoma could have this appearance. Recommend further evaluation. 3. Cholelithiasis. No gallbladder wall thickening. Fundal aspect of the gallbladder is not well differentiated from the hypodense hepatic lesions adjacent to the gallbladder. 4. Multiple pathologically enlarged lymph nodes within the rylee hepatis region, the largest measuring approximately 16 mm in short axis diameter, possibly reactive versus metastatic. 5. Few minimally enlarged lymph nodes within the retroperitoneum, the largest measuring approximately 12 mm in short axis diameter (series 4, image 40). Thank you for allowing us to participate in the care of your patient. Dictated and Authenticated by: Raheel Ulrich MD Lab Data Lab results reviewed: Yes I reviewed the patient's lab results. Labs: Laboratory Tests Range/Units 04/12/22 04/12/22 04/12/22 16:05 16:55 16:55 WBC (4.4-10.8) 10^3/uL 7.41 RBC (4.36-5.78) 10^6/uL 4.41 Hgb (13.5-17.5) g/dL 13.0 L Hct (40.0-50.0) % 39.3 L MCV (80-95) fL 89 MCH (27.0-33.0) pg 29.5 MCHC (32.0-36.0) % 33.1 RDW (11.8-14.1) % 13.5 Plt Count (130-400) 10^3/uL 160 MPV (8.0-11.0) fL 10.5 Immature Gran % 0.4 Neutrophils % 77.5 Lymphocytes % 12.1 Monocytes % 8.5 Eosinophils % 1.1 Basophils % 0.4 Nucleated RBC % (0.0-0.3) % 0.0 Absolute Neutrophils (1.2-6.7) 10^3/uL 5.74 Absolute Lymphocytes (1.2-3.4) 10^3/uL 0.90 L Absolute Monocytes (0.1-0.8) 10^3/uL 0.63 Absolute Eosinophils (0.0-0.7) 10^3/uL 0.08 Absolute Basophils (0.0-0.2) 10^3/uL 0.03 PT INR Sodium (136-145) mmol/L 138 Potassium (3.5-5.1) mmol/L 4.4 Chloride (98-107) mmol/L 101 Carbon Dioxide (21.0-32.0) mmol/L 28.6 Anion Gap (3-11) mmol/L 8.4 BUN (7-18) mg/dL 20 H Creatinine (0.70-1.30) mg/dL 0.9 Est GFR (CKD-EPI 2020) (mL/min/1.73m2) 90.74 Glucose (74-106) mg/dL 127 H Calcium (8.5-10.1) mg/dL 9.2 Magnesium (1.8-2.4) mg/dL 1.5 L Total Bilirubin (0.2-1.0) mg/dL 2.2 H AST (15-37) U/L 224 H ALT (16-63) U/L 445 H Alkaline Phosphatase (46-116) U/L 451 H Total Protein (6.4-8.2) g/dL 8.0 Albumin (3.4-5.0) g/dL 3.6 Lipase (73-393) U/L 176 Urine Color (Yellow) Yellow Urine Clarity (Clear) Clear Urine pH (5-8) 6.0 Ur Specific Scalf (1.005-1.025) 1.025 Urine Protein (Negative) mg/dL Negative Urine Ketones (Negative) mg/dL Negative Urine Blood (Negative) Negative Urine Nitrite (Negative) Negative Urine Bilirubin (Negative) Small H Urine Urobilinogen (Up TO 0.2) EU/dL 2.0 H Ur Leukocyte Esterase (Negative) Negative Urine Glucose (Negative) mg/dL Negative Range/Units 04/12/22 20:50 WBC (4.4-10.8) 10^3/uL RBC (4.36-5.78) 10^6/uL Hgb (13.5-17.5) g/dL Hct (40.0-50.0) % MCV (80-95) fL MCH (27.0-33.0) pg MCHC (32.0-36.0) % RDW (11.8-14.1) % Plt Count (130-400) 10^3/uL MPV (8.0-11.0) fL Immature Gran % Neutrophils % Lymphocytes % Monocytes % Eosinophils % Basophils % Nucleated RBC % (0.0-0.3) % Absolute Neutrophils (1.2-6.7) 10^3/uL Absolute Lymphocytes (1.2-3.4) 10^3/uL Absolute Monocytes (0.1-0.8) 10^3/uL Absolute Eosinophils (0.0-0.7) 10^3/uL Absolute Basophils (0.0-0.2) 10^3/uL PT Cancelled INR Cancelled Sodium (136-145) mmol/L Potassium (3.5-5.1) mmol/L Chloride (98-107) mmol/L Carbon Dioxide (21.0-32.0) mmol/L Anion Gap (3-11) mmol/L BUN (7-18) mg/dL Creatinine (0.70-1.30) mg/dL Est GFR (CKD-EPI 2020) (mL/min/1.73m2) Glucose (74-106) mg/dL Calcium (8.5-10.1) mg/dL Magnesium (1.8-2.4) mg/dL Total Bilirubin (0.2-1.0) mg/dL AST (15-37) U/L ALT (16-63) U/L Alkaline Phosphatase (46-116) U/L Total Protein (6.4-8.2) g/dL Albumin (3.4-5.0) g/dL Lipase (73-393) U/L Urine Color (Yellow) Urine Clarity (Clear) Urine pH (5-8) Ur Specific Scalf (1.005-1.025) Urine Protein (Negative) mg/dL Urine Ketones (Negative) mg/dL Urine Blood (Negative) Urine Nitrite (Negative) Urine Bilirubin (Negative) Urine Urobilinogen (Up TO 0.2) EU/dL Ur Leukocyte Esterase (Negative) Urine Glucose (Negative) mg/dL HPI General Mode of arrival: ambulatory. Date/Time Provider Initiated Documentation: 04/12/22 14:52. Limitations to Documentation: no limitations. Information obtained by: patient, family, RN notes reviewed and old records reviewed. HPI Narrative: 71-year-old male presents to the ER with chief complaint of right upper quadrant abdominal pain which radiates into the back for approximately 2 months. Patient has been being worked up at [facility] had a recent MRI of his abdomen 1 week ago. reports that an ultrasound noted 2 lesions on his liver. He does report he has a history of gallstones. The reports that the MRI showed nothing concerning. She also mentioned some fluid on his lung. Patient's only surgical history includes a hernia repair. He denies any nausea vomiting diarrhea denies any fever chills or problems urinating. He has been taking oxycodone which was previously prescribed for him for the pain. Past medical history includes type 2 diabetes, neuropathy, osteoarthritis. Related Data Home Medications Medication Instructions Recorded Confirmed tamsulosin 0.4 mg capsule (Flomax) 0.4 mg PO HS #90 tab-caps 05/02/14 12/20/21 pregabalin 75 mg capsule (Lyrica) 150 mg PO TID 11/01/17 12/20/21 alpha lipoic acid 600 mg capsule 600 mg PO ONCE 07/10/19 12/20/21 atorvastatin 10 mg tablet 10 mg PO DAILY 07/10/19 12/20/21 cholecalciferol (vitamin D3) 50 2,000 unit PO DAILY 07/10/19 12/20/21 mcg (2,000 unit) tablet diclofenac sodium 1 % topical gel 2 gm topical QID 07/10/19 12/20/21 (Voltaren) dorzolamide 2 % eye drops 1 drp ophthalmic (eye) TID 07/10/19 12/20/21 glimepiride 2 mg tablet 2 mg PO DAILY 07/10/19 12/20/21 metformin 1,000 mg tablet 1,000 mg PO BID 07/10/19 12/20/21 omega-3 fatty acids 1,000 mg 1,000 mg PO BID 07/10/19 12/20/21 capsule (Fish Oil Concentrate) vitamins B1 2.5 mg-B2 2.5 1 tab PO DAILY 07/10/19 12/20/21 mg-niacin 5 mg-B12 100 mcg-protease tablet (B-Complex With B-12) meloxicam 15 mg tablet 15 mg PO DAILY PRN Shoulder pain 11/18/19 12/20/21 #90 tabs ibuprofen 800 mg tablet 800 mg PO BID PRN pain, moderate 06/12/20 12/20/21 #60 tabs clopidogrel 75 mg tablet 75 mg PO DAILY 12/16/21 12/20/21 dulaglutide 3 mg/0.5 mL 3 mg subcut QWEEK 12/16/21 12/20/21 subcutaneous pen injector (Trulicity) duloxetine 30 mg capsule,delayed 30 mg PO DAILY 12/16/21 12/20/21 release losartan 25 mg tablet 12.5 mg PO DAILY 12/16/21 12/20/21 magnesium oxide 500 mg capsule 250 mg PO DAILY 12/16/21 12/20/21 vitamin B complex 1 tab PO DAILY 12/16/21 12/20/21 oxycodone 5 mg capsule 5 mg PO Q8H PRN pain #10 caps 04/12/22 Previous Rx's Medication Instructions Recorded meloxicam 15 mg tablet 15 mg PO DAILY PRN Shoulder pain 11/18/19 #90 tabs ibuprofen 800 mg tablet 800 mg PO BID PRN pain, moderate 06/12/20 #60 tabs oxycodone 5 mg capsule 5 mg PO Q8H PRN pain #10 caps 04/12/22 Allergies Allergy/AdvReac Type Severity Reaction Status Date / Time No Known Drug Allergies Allergy Verified 04/12/22 13:18 General Stated Complaint: Abd Prob JORGITO: 3 Review of Systems All systems reviewed & are unremarkable except as noted in HPI and below Gastrointestinal Gastrointestinal: Reports as per HPI and Reports abdominal pain PFSH All Active Problems (Updated 04/12/22 @ 20:34 by Kelsey Potter NP) Pleural effusion, right (Acute) Lesion of liver (Acute) Osteoarthritis of left knee (Acute) Right rotator cuff tendonitis (Acute) Skin cancer, basal cell (Acute) Trigger finger, left ring finger (Acute) Trigger finger, left middle finger (Acute) Dislocation of left shoulder joint (Acute 07/07/19) Left rotator cuff tear (Acute 07/07/19) Bursitis of left shoulder (Acute 07/07/19) Impingement syndrome of left shoulder (Acute 07/07/19) Adhesive capsulitis of left shoulder (Acute 07/07/19) Bankart lesion of left shoulder (Acute 07/07/19) Tendinitis of long head of biceps brachii of left shoulder (Acute 07/07/19) Medical History Diabetes mellitus, type 2 Neuropathy feet Osteoarthritis Vertigo Surgical History H/O cataract removal with insertion of prosthetic lens alix. Replacement of total knee joint (04/30/12) right knee Social History Smoking/Tobacco Use Status: Former Tobacco Use Smoking risk assessment performed?: Yes Alcohol Intake: current Alcohol Intake frequency: holidays/special occasions only Drug use: Never Substance use type: does not use Current gender identity: male Do you feel safe at home: Yes Do you feel safe in your relationship?: Yes Exam Narrative Exam Narrative: Constitutional: Alert and oriented x3. Appears stated age. Normal body habitus. Head: Normocephalic, no trauma. Eyes: Pupils PERRL, Red reflex noted, EOM's intact. Eyelids symmetrical without lesions, discharge, or swelling. ENT: Bilateral TM's WNL, External ear normal to inspection, no mastoid TTP, swelling, or erythema, Nasal turbinates WNL, no nasal discharge. Normal dentition, Posterior pharynx WNL, no exudate. Chest: RRR, Normal S1, S2, distal pulses intact. Resp: Lungs clear to auscultation bilaterally, no wheezes, rales, or rhonchi. Abdomen: Appears somewhat distended, nontender to palpation all 4 quadrants, normoactive bowel sounds all 4 quads. Musculoskeletal: Normal gait, 5/5 strength to all four extremities. Skin: No suspicious rashes or lesions. Capillary refill less than 2 sec. Neurologic: Cranial nerves II-XII intact. Alert and oriented x 3. Motor: No deficits noted. Sensory: Intact bilaterally all 4 extremities. Reflexes: DTR's intact bilaterally.. Hematologic/Lymphatic: No ecchymosis, no lymphadenopathy. Course Vital Signs Vital signs: Vital Signs Temperature 36.6 C 04/12/22 13:15 Pulse 85 04/12/22 13:15 Respiratory Rate 18 04/12/22 13:15 Blood Pressure 147/68 H 04/12/22 13:15 Pulse Oximetry 96 04/12/22 13:15 Temperature 36.6 C 04/12/22 13:15 Temperature Source Temporal Artery Scan 04/12/22 13:15 Pulse 85 04/12/22 13:15 Respiratory Rate 18 04/12/22 13:15 Respiratory Effort Non-Labored 04/12/22 13:18 Blood Pressure 147/68 H 04/12/22 13:15 Blood Pressure Position Sitting 04/12/22 13:15 Pulse Oximetry 96 04/12/22 13:15 Oxygen Delivery Method Room Air 04/12/22 13:15 Oxygen Flow Rate 0 04/12/22 13:15 PAWSS Have you Been Recently Intoxicated or Drunk Within the Last 30 days?: No Have you Ever Experienced Previous Episodes of Alcohol Withdrawal?: No Have you ever Experienced Withdrawal Seizures?: No Have you ever Experienced Delirium Tremens(DT)s?: No Have you ever undergone Alcohol Rehabilitation Treatment (i.e, inpt ot outpatient treatment programs)?: No Have you ever Experienced Blackouts?: No Have you ever Combined Alcohol with other Downers within the last 90 days?: No Have you ever Combined Alcohol with any other Substance of Abuse during the last 90 days?: No Positive Blood Alcohol level on Presentation? [PCS.BAL]: No Evidence of Increased Autonomic Activity (i.e. HR>120, tremor, sweating, agitation, nausea)?: No Result: 0
--- NOTE | 2022-04-12 16:15 | DI.CT_ITS ---
Exam(s) CT ABDOMEN PELVIS W EXAM: CT ABDOMEN PELVIS W CLINICAL HISTORY: RUQ abd pain TECHNIQUE: COMPARISON: CR,XR XR CHEST 2V PA LATERAL from 04/12/2022 FINDINGS: CT examination of the abdomen and pelvis was performed with bolus infusion of 100 cc of Omnipaque 350 . There is a moderate size right pleural effusion with associated atelectasis. Visualized lung bases a re clear.. The hepatic contour is nodular consistent with cirrhosis. There are multiple poorly defined low-atte nuation lesions in the liver suggesting metastatic disease, most prominent adjacent to the gallbladde r fossa. There is also note made of masslike abnormal attenuation measuring up to about 4 cm in diam eter in the pericolonic fat in the right upper quadrant inferior to the inferior tip of the right hep atic lobe. There is trace free intraperitoneal fluid predominantly in the right upper quadrant. There are multiple gallstones. Gallbladder wall cannot be differentiated from surrounding hepatic le sions. No gross biliary dilatation. Pancreas is unremarkable in appearance.. Spleen is unremarkable in appearance.. Gallbladder and bile ducts are unremarkable. Pancreas is unremarkable in appearance. Adrenals appear normal bilaterally. Kidneys appear normal with no evidence of renal mass, hydronephrosis, or nephrolithiasis. Unremarkab le bladder. There are markedly abnormal portal and celiac lymph nodes with adenopathy up to about 4 cm in diamete r. If there are few probable abnormal perigastric nodes. There is 17 millimeter in diameter rounded retroperitoneal lymph node, para-aortic at the level of the left kidney. A few other probably abnor mal retroperitoneal lymph nodes are noted. No gross pelvic adenopathy.. Abdominal aorta is of june l diameter and no abnormality is seen involving major visceral branches.. Appendix is normal. No evidence diverticulitis or bowel obstruction. No significant abdominal wall hernia seen. No focal bony lesion identified in the region surveyed. Impression: Findings are highly suggestive of malignancy with multiple presumed hepatic metastases as well as por raudel, celiac, and retroperitoneal metastasis as well as presumed omental of metastasis in the right up per quadrant. Right pleural effusion also noted. Please correlate regarding known malignancy.. RADIATION DOSE DELIVERED: 1,296.99mGy.cm Total DLP 1,296.99mGy.cm Total DLP !Error CTDIvol DATA REPOSITORY: All CT scans at this facility are submitted to the National Radiology Data Registry (NRDR) Dose Index Registry (DIR) with the [employer] (ACR). RADIATION OPTIMIZATION: All CT scans at this facility use at least one of these dose optimization te chniques: automated exposure control; mA and/or kV adjustment per patient size (includes targeted exa ms where dose is matched to clinical indication); or iterative reconstruction.
[2022-04-12 16:21] LABS: Bilirubin Small (Negative); Blood Negative (Negative); Clarity Clear (Clear); Glucose Negative (Negative); Ketones Negative (Negative); Leukocyte Esterase Negative (Negative); Nitrite Negative (Negative); Specific Gravity 1.025 (1.005-1.025)
[2022-04-12 16:59] LABS: Abs Immature Grans 0.03 10^3/uL (0.0-0.06); Absolute Basophil Count 0.03 10^3/uL (0.0-0.2); Absolute Eosinophil Count 0.08 10^3/uL (0.0-0.7); Absolute Monocyte Count 0.63 10^3/uL (0.1-0.8); Absolute Neutrophil Count 5.74 10^3/uL (1.2-6.7); Basophils % 0.4; Eosinophils % 1.1; HCT 39.3 % (40.0-50.0); Immature Grans % 0.4; Lymphocytes % 12.1; MCH 29.5 pg (27.0-33.0); MCHC 33.1 % (32.0-36.0); MCV 89 fL (80-95); MPV 10.5 fL (8.0-11.0); Monocytes % 8.5; Neutrophils % 77.5; Platelet Count 160 10^3/uL (130-400); RBC 4.41 10^6/uL (4.36-5.78); RDW 13.5 % (11.8-14.1); RDW-SD 44.4 fL; WBC 7.41 10^3/uL (4.4-10.8)
[2022-04-12 17:17] LABS: ALT 445 U/L (16-63); AST 224 U/L (15-37); Albumin 3.6 g/dL (3.4-5.0); Alkaline Phosphatase 451 U/L (46-116); Anion Gap 8.4 mmol/L (3-11); BUN 20 mg/dL (7-18); Bilirubin, Total 2.2 mg/dL (0.2-1.0); CO2 28.6 mmol/L (21.0-32.0); CREATININE 0.9 mg/dL (0.70-1.30); Calcium 9.2 mg/dL (8.5-10.1); Chloride 101 mmol/L (98-107); Estimated GFR 90.74 (mL/min/1.73m2); Glucose 127 mg/dL (74-106); Lipase 176 U/L (73-393); Magnesium 1.5 mg/dL (1.8-2.4); Potassium 4.4 mmol/L (3.5-5.1); Sodium 138 mmol/L (136-145)
[2022-04-12] MEDS: Omnipaque 350 MG/ML 100 ML BTL IJ (18:15)
--- NOTE | 2022-04-12 19:19 | DI.VRAD_ITS ---
PROCEDURE INFORMATION: Exam: CT Abdomen And Pelvis With Contrast Exam date and time: 04/12/2022 6:17 PM Age: 71 years old Clinical indication: Abdominal pain; Other: Ruq pain TECHNIQUE: Imaging protocol: Computed tomography of the abdomen and pelvis with contrast. Radiation optimization: All CT scans at this facility use at least one of these dose optimization techniques: automated exposure control; mA and/or kV adjustment per patient size (includes targeted exams where dose is matched to clinical indication); or iterative reconstruction. Contrast material: OMNIPAQUE 350; Contrast volume: 100 ml; Contrast route: INTRAVENOUS (IV); COMPARISON: No relevant prior studies available. FINDINGS: Pleural spaces: Moderate-sized right pleural effusion with associated atelectasis. Heart: Atherosclerotic calcification of the visualized right coronary artery. Liver: Nodularity of the hepatic peripheral contour, compatible with cirrhosis. Multiple hypodense lesions throughout the liver, with conglomeration of hypodense lesions within the medial segment left hepatic lobe, adjacent to the gallbladder, measuring in total 4.9 x 3.5 cm (series 5, image 266). Gallbladder and bile ducts: Cholelithiasis. No gallbladder wall thickening. Fundal aspect of the gallbladder is not well differentiated from the hypodense hepatic lesions adjacent to the gallbladder. Pancreas: Normal. Spleen: Normal. Adrenal glands: Normal. No mass. Kidneys and ureters: Normal. Stomach and bowel: Colonic diverticulosis. Appendix: Appendix normal. Intraperitoneal space: Small amount of intraperitoneal free fluid. Vasculature: Atherosclerotic disease of the abdominal aorta and iliac arteries. Atherosclerotic disease of the abdominal aorta and iliac arteries. Lymph nodes: Multiple pathologically enlarged lymph nodes within the rylee hepatis region, the largest measuring approximately 16 mm in short axis diameter, possibly reactive versus metastatic. Few minimally enlarged lymph nodes within the retroperitoneum, the largest measuring approximately 12 mm in short axis diameter (series 4, image 40). Urinary bladder: Unremarkable as visualized. Reproductive: Unremarkable as visualized. Bones/joints: Mild degenerative changes of the hips and sacroiliac joints. Multilevel thoracolumbar spine degenerative disc space narrowing and osteophyte formation. Soft tissues: Small bilateral fat containing inguinal hernias. IMPRESSION: 1. Moderate-sized right pleural effusion with associated atelectasis. 2. Multiple hypodense lesions throughout the liver, with conglomeration of hypodense lesions within the medial segment left hepatic lobe, adjacent to the gallbladder, measuring in total 4.9 x 3.5 cm (series 5, image 266). Lesions most compatible with metastatic disease. Process such as cholangiocarcinoma could have this appearance. Recommend further evaluation. 3. Cholelithiasis. No gallbladder wall thickening. Fundal aspect of the gallbladder is not well differentiated from the hypodense hepatic lesions adjacent to the gallbladder. 4. Multiple pathologically enlarged lymph nodes within the rylee hepatis region, the largest measuring approximately 16 mm in short axis diameter, possibly reactive versus metastatic. 5. Few minimally enlarged lymph nodes within the retroperitoneum, the largest measuring approximately 12 mm in short axis diameter (series 4, image 40). Dictated and Authenticated by: Raheel Ulrich MD. Ordering:FERNANDO Cole MD
--- NOTE | 2022-04-12 19:21 | DI.VRAD_ITS ---
PROCEDURE INFORMATION: Exam: XR Chest Exam date and time: 04/12/2022 6:25 PM Age: 71 years old Clinical indication: Other: Ruq abd pain TECHNIQUE: Imaging protocol: Radiologic exam of the chest. Views: 2 views. COMPARISON: CT ABDOMEN PELVIS W 04/12/2022 6:17 PM FINDINGS: Lungs: See Pleural spaces finding. Pleural spaces: Small right pleural effusion with associated atelectasis. Heart/Mediastinum: Normal. Bones/joints: Degenerative changes of the glenohumeral and acromioclavicular joints. Multilevel thoracic spine degenerative disc space narrowing and osteophyte formation. IMPRESSION: Small right pleural effusion with associated atelectasis. Dictated and Authenticated by: Raheel Ulrich MD. Ordering:FERNANDO Cole MD
[2022-04-12 20:55] VITALS: BP 125/76; PULSE 91; RESP 20; O2SAT 98
--- NOTE | 2022-04-12 22:53 | NUR.NOTE ---
Referral faxed to [facility] Dr. Strickland for a pleural effusion in on e week per Kelsey Potter. Put the referral in the care manger's box for follow up assistance.Nursing Note:
[2022-04-13 18:04] LABS: CEA <0.5 ng/mL (See Note)
[2022-04-15 09:53] LABS: AFP Tumor Marker <2.5 ng/mL (<8.1)
== END 2022-04-12 20:57 | disposition home or self-care (01) ==
PROVIDERS: Surgery; Emergency Provider Registered Nurse Emergency
DX: J90 Pleural effusion, not elsewhere classified (principal); K76.9 Liver disease, unspecified; R74.01 Elevation of levels of liver transaminase levels; E11.40 Type 2 diabetes mellitus with diabetic neuropathy, unspecified; R74.8 Abnormal levels of other serum enzymes; Z79.84 Long term (current) use of oral hypoglycemic drugs; Z87.891 Personal history of nicotine dependence; E80.7 Disorder of bilirubin metabolism, unspecified
CPT/HCPCS: 36415; 80053; 83690; 99285; 71046; 74177; 81003; 82105; 82378; 83735; 85025; 85610; 99284; J3490

== ENCOUNTER → 2022-04-14 15:29 | Outpatient (BNVA) | payer MEDICARE, SELFPAY | PROVIDERS: PCP Nurse Practitioner Adult Health; Visit Provider Surgery | DX: J90 Pleural effusion, not elsewhere classified (principal); R07.89 Other chest pain; R06.02 Shortness of breath; G62.9 Polyneuropathy, unspecified; R63.4 Abnormal weight loss; R10.11 Right upper quadrant pain; E11.9 Type 2 diabetes mellitus without complications | CPT/HCPCS: 99215; 99243 ==

== ENCOUNTER 2022-04-15 12:48 | Day surgery (SDC) | payer MEDICARE, SELFPAY ==
--- NOTE | 2022-04-15 | DI.RAD_ITS ---
Exam(s) XR PORTABLE CHEST AP EXAM: XR PORTABLE CHEST AP CLINICAL HISTORY: s/p thoro TECHNIQUE: 2D digital imaging was performed of the chest. Two images were obtained. AP views were obtained. COMPARISON: CR,XR XR CHEST 2V PA LATERAL from 04/12/2022 FINDINGS: MEDIASTINUM: Normal. HEART: Normal. PULMONARY VASCULATURE: Normal. LUNGS: Clear. PLEURAL SPACE: No pleural effusion or pneumothorax. BONE:Within normal limits for the patient's age. OTHER FINDINGS:Normal. IMPRESSION: No acute pulmonary findings. DATA REPOSITORY: RADIATION DOSE DELIVERED:
[2022-04-15 13:08] VITALS: BP 129/83; PULSE 85; RESP 18; TEMP 36; O2SAT 96
--- NOTE | 2022-04-15 14:28 | PAPNONF_PTH ---
PATIENT: Wilfred Das LOC: [facility] U#:[id number] AGE/SX: 71/M ROOM: RE04/15/[address]: Janine Strickland : 1950 BED: DIS: 04/15/2022 SPEC #: [id number] RECD: 04/15/22 14:57 STATUS: ANIVAL REQ #: [id number] PIA: 04/15/22 14:[address]: Janine Strickland DEPT: [facility] Cytology RECD BY: Nedra Johnson ENTERED: 04/15/22 14:57 SP TYPE: SUSHMA FITCH DR: Chastity Torres, ANURAG Tissues: 1 - BODY FLUID CYTO(NOT S/U/N/EM)[facility] Procedures: BODY FLUID CYTO(NOT SPU/UR/NIP/ENDOM)[facility] CYTOLOGY CELL BLOCK Comments: [id number] (TOTAL VOLUME = 55 ml, SENT FRESH)
[2022-04-15] MEDS: Sodium Bicarbonate 50 MEQ/50 ML VIAL (14:35)
--- NOTE | 2022-04-15 14:46 | W.PM.OP ---
Date of service: 04/15/22 Time of Service: 14:46 Operative Note Operative Note DATE OF PROCEDURE: 04/15/22 PRE-OP DIAGNOSIS: met pleural eff POST-OP DIAGNOSIS: same PROCEDURE: thorocentisis R chest 800cc mariellecurt jama SURGEON: Janine Strickland ANESTHESIA TYPE: Local By Surgeon Refer to Anesthesia Record ESTIMATED BLOOD LOSS: 2 Patient was transported to: same day Patient's condition: stable Procedure Description: REPORT OF OPERATION Operative Note Operative Note Pt is here today for thoracentesis for symptoms of shortness of breath.? Chest x-ray was reviewed prior to beginning the procedure.? Informed consent was obtained explaining risks and benefits of the procedure, including but not limited to bleeding, infection, pneumothorax, recurrence, complications of anesthesia, and other unforetold complications. ? PROCEDURE:? The patient is brought to the procedure room and placed in the seated position.? Ultrasound is used to localize the pocket on the right chest.? The area is marked and then prepped and draped in the usual sterile fashion using a ChloraPrep scrub solution.? 10 cc's of 1% Lidocaine is used to anesthetize the T10 interspace. ? The small becky is made with a #11 blade.? The needle and catheter is then inserted over the top of the rib, aspirating as it is inserted.? The needle is then removed.? The catheter is then hooked up to the Vacutainer system and 800 cc's of straw-colored fluid is evacuated.? The catheter is removed; pressure is held.? Sterile compression dressing is applied. The fluid is sent for cytology. ? Portable chest x-ray shows no pneumothorax.? Pt is given instructions in wound care, activity, medications, and warning signs: SOB, increasing in pain, chest pain, redness or temperature- if these occur, come to ED.
[2022-04-15 14:50] VITALS: BP 143/80; PULSE 88; RESP 18; TEMP 36.4; O2SAT 96
--- NOTE | 2022-04-15 14:50 | W.PM.DSUDISC ---
Discharge Plan Disposition Patient Disposition: HOME Condition: Good Discharge Details Reason For Visit: Thoracentesis Attending Provider: Janine Strickland Primary Care Provider: Chasitty Torres Home Meds and New Rx's Prescriptions: Continued meloxicam 15 mg tablet 15 mg PO DAILY PRN (Reason: Shoulder pain) Qty: 90 0RF duloxetine 30 mg capsule,delayed release(DR/EC) 30 mg PO DAILY losartan 25 mg tablet 12.5 mg PO DAILY magnesium oxide 500 mg capsule 250 mg PO DAILY vitamin B complex Tablet 1 tab PO DAILY Trulicity 3 mg/0.5 mL pen injector 3 mg subcut QWEEK atorvastatin 10 mg tablet 10 mg PO DAILY glimepiride 2 mg tablet 2 mg PO DAILY metformin 1,000 mg tablet 1,000 mg PO BID dorzolamide 2 % drops 1 drp OP TID diclofenac sodium [Voltaren] 1 % gel 2 gm TP QID B-Complex With B-12 2.5 mg-2.5 mg- 5 mg-100 mcg tablet 1 tab PO DAILY alpha lipoic acid 600 mg capsule 600 mg PO ONCE cholecalciferol (vitamin D3) 2,000 unit tablet 2,000 unit PO DAILY tamsulosin [Flomax] 0.4 MG capsule 0.4 mg PO HS Qty: 90 pregabalin [Lyrica] 75 MG capsule 150 mg PO TID oxycodone 5 mg capsule 5 mg PO Q8H PRN (Reason: pain) Qty: 10 0RF Rx Instructions: Take 1 tablet up to 3 times daily as needed for moderate to severe pain. Please take with food no driving ibuprofen 800 mg tablet 800 mg PO BID PRN (Reason: pain, moderate) Qty: 60 0RF Held clopidogrel 75 mg tablet 75 mg PO DAILY Hold Instructions: Resume on 05/03/22. Until you have your liver biopsy done. omega-3 fatty acids [Fish Oil Concentrate] 1,000 mg capsule 1,000 mg PO BID Hold Instructions: Resume on 05/03/22. Hold until you have your liver biopsy Discharge Instructions Additional Instructions: - Hold Plavix and fish oil for this you have your liver biopsy -Remove bandage in 24 hours. -You can shower in 24 hours -Resume diabetic diet -Ice as needed for pain Pain Management Plan -tylenol 100mg po every 8hrs -oxycodone 5mg po every 4hrs as needed for pain. -heat or ice -skelaxin (muscle relaxer) every 8hrs. DO NOT take at the same time as oxycodone. WOuld start at bedtime. Will make you drowsy -f/u in 2 wks time w/ Dr. Strickland Activity:: No strenuous activity for 24 hours Remove Dressings/Wound Care:: 24 hours Shower/Bathe:: 24 hours Diet:: Carb Counting Discharge Orders Discharge Orders: Discharge Order (Routine); Ordered 04/15/22 Ordered By: Janine Strickland
[2022-04-15 14:58] LABS: Clarity Clear; Nucleated Cells 900 uL (0); Source Pleural
[2022-04-18 16:40] LABS: Mononuclear Cells 76 %; Polynuclear Cells 24 %
[2022-04-19 10:51] LABS: Bilirubin, BF 1.2 mg/dL
== END 2022-04-15 15:25 | disposition home or self-care (01) ==
PROVIDERS: PCP Nurse Practitioner Adult Health; Visit Provider Surgery
PROC: 0W993ZZ Drainage of Right Pleural Cavity, Percutaneous Approach (ICD-10-PCS; CPT 32554; principal; 2022-04-15 13:45)
DX: J90 Pleural effusion, not elsewhere classified (principal)
CPT/HCPCS: 32554; 71045; 82247; 88104; 88305; 89051

== ENCOUNTER 2022-04-20 12:28 | Outpatient (CLI) | payer MEDICARE, SELFPAY ==
[2022-04-20 10:49] LABS: HCT 37.4 % (40.0-50.0); HGB 11.7 g/dL (13.5-17.5); MCH 28.7 pg (27.0-33.0); MCHC 31.3 % (32.0-36.0); MCV 92 fL (80-95); Platelet Count 153 10^3/uL (130-400); RBC 4.07 10^6/uL (4.36-5.78); RDW 14.4 % (11.8-14.1); RDW-SD 48.6 fL; WBC 7.54 10^3/uL (4.4-10.8)
[2022-04-20 11:00] LABS: Prothrombin Time 10.1 sec (9.3-11.0)
[2022-04-20 11:04] LABS: Ammonia 14 umol/L (11-32)
[2022-04-20 11:09] LABS: Iron 31 ug/dL (65-175); Total Iron Binding Capacity 285 ug/dL (250-450); Transferrin Sat 11 % (20-55)
[2022-04-20 11:20] LABS: ALT 316 U/L (16-63); AST 192 U/L (15-37); Albumin 3.1 g/dL (3.4-5.0); Alkaline Phosphatase 648 U/L (46-116); BUN 28 mg/dL (7-18); Bilirubin, Total 3.1 mg/dL (0.2-1.0); CREATININE 1.1 mg/dL (0.70-1.30); Calcium 9.3 mg/dL (8.5-10.1); Chloride 105 mmol/L (98-107); Estimated GFR 71.32 (mL/min/1.73m2); Ferritin 335 ng/mL (26-388); Glucose 129 mg/dL (74-106); Potassium 4.8 mmol/L (3.5-5.1); Sodium 140 mmol/L (136-145); Total Protein 7.6 g/dL (6.4-8.2)
[2022-04-21 11:08] LABS: Hepatitis A Antibody IgM Negative (Negative); Hepatitis B Core Antibody Negative (Negative); Hepatitis B surface Ag Negative (Negative); Hepatitis C Ab w Rflx HCV PCR Negative (Negative)
== END 2022-04-20 12:29 | disposition home or self-care (01) ==
LOC: LBO 12:30
PROVIDERS: PCP Nurse Practitioner Adult Health; Visit Provider Nurse Practitioner Adult Health
DX: R79.89 Other specified abnormal findings of blood chemistry (principal); J90 Pleural effusion, not elsewhere classified
CPT/HCPCS: 36415; 80053; 85027; 86704; 86709; 86803; 87340; 82140; 82728; 83540; 83550; 85610

== ENCOUNTER 2022-04-26 10:25 | Day surgery (SDC) | payer MEDICARE, SELFPAY ==
[2022-04-26 10:29] VITALS: BP 126/53; PULSE 83; RESP 22; TEMP 36.3; O2SAT 97
--- NOTE | 2022-04-26 10:30 | RT.EKG_ITS ---
APPROVED REPORT Exam: Resting ECG Reason for Exam: Dyspnea Patient Location: E HR:83 bpm ECG Measurements Heart Rate 83 AXIS MN 179 P 52 QRSd 86 QRS 61 QT 358 T 29 QTc 421 Conclusion Sinus rhythm...normal P axis, V-rate 60- 99 Low voltage, precordial leads...precordial leads <1.0mV. Sinus. Normal axis. No STEMI. I have reviewed and interpreted ECG and agree with software generated interpretation.
--- NOTE | 2022-04-26 10:38 | ED.GENADUL_ITS ---
Discharge Plan Disposition Patient Disposition: OTHER Other Facility: OR Condition: Good Discharge Details Clinical Impression: Pleural effusion, right Primary Care Provider: Chastity Torres ED Provider: Bird Sinclair Discharge Data Discharge Date/Time-TO BE ENTERED AT DEPARTURE: 04/26/22 12:19 Medical Decision Making This is a 71-year-old gentleman who is being worked up for potential hepatic ca rcinoma, had a biopsy yesterday, having a PET scan on Monday, but the concern is that this is end-stage and metastatic. Patient presents for acute on chronic jaundice, fluid retention, but more so today requesting that his right sided pleural effusion be relieved. His PCP has already spoken with our surgical team. I have a call placed to our surgical team in the meantime we will obtain routine screening laboratory values including a chest x-ray and coags as this may be required by the surgical team. I do not believe that the laboratory values today will change his disposition from the ER as we have laboratory values from recent ER visit and he is currently being worked up at [facility]. Laboratory values reveal no evidence of leukocytosis. Mild anemia present. INR 1.1. Electrolytes unremarkable. Creatinine 1.2 with a GFR of 64.25. Total bili, LFTs are all elevated, lipase 402 Chest x-ray reveals a moderate sized right-sided Case discussed with our surgical team, Dr. Strickland, she will be taking the patient to the OR for thoracentesis and then likely subsequent discharge. This documentation was generated using [employer] dictation system, please disregard any oddities of phrase or misspellings. Medical Records Medical records reviewed: Yes I reviewed the patient's medical records. Imaging Data Radiologic Study: Attestation: I personally reviewed and interpreted this imaging study as follows: Imaging: X-Ray Radiologist's impression: Exam(s) XR CHEST 2V PA LATERAL EXAM: XR CHEST 2V PA LATERAL CLINICAL HISTORY: Concern for pleural effusion. TECHNIQUE: 2D digital imaging was performed. COMPARISON: CR XR PORTABLE CHEST AP from 04/15/2022 FINDINGS: 2 views: Heart size is normal. The mediastinum is not widened. There is a moderate size pleural effusion on the right side. Platelike atelectasis noted in the right lung base. Platelike atelectasis also noted in the left lung base and this possibly a smaller left pleural effusion. IMPRESSION: Moderate size right pleural effusion. This was not evident on chest x-ray of 04/15/2022. Lab Data Lab results reviewed: Yes I reviewed the patient's lab results. Labs: Laboratory Tests Range/Units 04/26/22 04/26/22 04/26/22 11:06 11:06 11:06 WBC (4.4-10.8) 10^3/uL 5.94 RBC (4.36-5.78) 10^6/uL 3.69 L Hgb (13.5-17.5) g/dL 11.0 L Hct (40.0-50.0) % 33.4 L MCV (80-95) fL 91 MCH (27.0-33.0) pg 29.8 MCHC (32.0-36.0) % 32.9 RDW (11.8-14.1) % 14.7 H Plt Count (130-400) 10^3/uL 160 MPV (8.0-11.0) fL 11.7 H Immature Gran % 0.3 Neutrophils % 79.0 Lymphocytes % 10.8 Monocytes % 8.4 Eosinophils % 1.2 Basophils % 0.3 Nucleated RBC % (0.0-0.3) % 0.0 Absolute Neutrophils (1.2-6.7) 10^3/uL 4.69 Absolute Lymphocytes (1.2-3.4) 10^3/uL 0.64 L Absolute Monocytes (0.1-0.8) 10^3/uL 0.50 Absolute Eosinophils (0.0-0.7) 10^3/uL 0.07 Absolute Basophils (0.0-0.2) 10^3/uL 0.02 PT Cancelled INR Cancelled APTT Cancelled Sodium Cancelled Potassium Cancelled Chloride Cancelled Carbon Dioxide Cancelled Anion Gap Cancelled BUN Cancelled Creatinine Cancelled Est GFR (CKD-EPI 2020) Cancelled Glucose Cancelled Calcium Cancelled Total Bilirubin Cancelled AST Cancelled ALT Cancelled Alkaline Phosphatase Cancelled Total Protein Cancelled Albumin Cancelled Lipase Cancelled Range/Units 04/26/22 04/26/22 04/26/22 11:48 11:48 12:10 WBC (4.4-10.8) 10^3/uL RBC (4.36-5.78) 10^6/uL Hgb (13.5-17.5) g/dL Hct (40.0-50.0) % MCV (80-95) fL MCH (27.0-33.0) pg MCHC (32.0-36.0) % RDW (11.8-14.1) % Plt Count (130-400) 10^3/uL MPV (8.0-11.0) fL Immature Gran % Neutrophils % Lymphocytes % Monocytes % Eosinophils % Basophils % Nucleated RBC % (0.0-0.3) % Absolute Neutrophils (1.2-6.7) 10^3/uL Absolute Lymphocytes (1.2-3.4) 10^3/uL Absolute Monocytes (0.1-0.8) 10^3/uL Absolute Eosinophils (0.0-0.7) 10^3/uL Absolute Basophils (0.0-0.2) 10^3/uL PT Cancelled INR Cancelled APTT Cancelled Sodium Cancelled 139 Potassium Cancelled 4.4 Chloride Cancelled 105 Carbon Dioxide Cancelled 24.4 Anion Gap Cancelled 9.6 BUN Cancelled 31 H Creatinine Cancelled 1.2 Est GFR (CKD-EPI 2020) Cancelled 64.25 Glucose Cancelled 164 H Calcium Cancelled 8.9 Total Bilirubin Cancelled 3.3 H AST Cancelled 158 H ALT Cancelled 231 H Alkaline Phosphatase Cancelled 651 H Total Protein Cancelled 7.0 Albumin Cancelled 2.8 L Lipase Cancelled 402 H Range/Units 04/26/22 12:10 WBC (4.4-10.8) 10^3/uL RBC (4.36-5.78) 10^6/uL Hgb (13.5-17.5) g/dL Hct (40.0-50.0) % MCV (80-95) fL MCH (27.0-33.0) pg MCHC (32.0-36.0) % RDW (11.8-14.1) % Plt Count (130-400) 10^3/uL MPV (8.0-11.0) fL Immature Gran % Neutrophils % Lymphocytes % Monocytes % Eosinophils % Basophils % Nucleated RBC % (0.0-0.3) % Absolute Neutrophils (1.2-6.7) 10^3/uL Absolute Lymphocytes (1.2-3.4) 10^3/uL Absolute Monocytes (0.1-0.8) 10^3/uL Absolute Eosinophils (0.0-0.7) 10^3/uL Absolute Basophils (0.0-0.2) 10^3/uL PT 11.2 H INR 1.1 APTT 27.3 Sodium Potassium Chloride Carbon Dioxide Anion Gap BUN Creatinine Est GFR (CKD-EPI 2020) Glucose Calcium Total Bilirubin AST ALT Alkaline Phosphatase Total Protein Albumin Lipase ECG Data Attestation: I personally reviewed and interpreted this ECG (s) as follows: Interpretation: Sinus rhythm, ventricular rate of 83, no STEMI HPI General Mode of arrival: ambulatory . Date/Time Provider Initiated Documentation: 04/26/22 10:27 . Limitations to Documentation: no limitations . Information obtained by: patient and family . HPI Narrative: This is a 71-year-old gentleman who is presents to the ER to help expedite thoracentesis of a right pleural effusion. He was recently diagnosed with what is believed to be liver cancer, had a biopsy performed yesterday at [facility] and has a PET scan on Monday. Once he understands the severity of his disease he will then decide what sort of treatment he would like to move forward with, DNR, DNI, etc. In the meantime he reports that he continues to retain fluid, continues to be jaundiced, but given the fluid retention and worsening effusion he reports worsening shortness of breath. Patient states that he spoke with his PCP earlier today who then spoke with our surgical team and are expecting him to present to the ER Related Data Home Medications Medication Instructions Recorded Confirmed tamsulosin 0.4 mg capsule (Flomax) 0.4 mg PO #90 tab-caps 05/02/14 04/26/22 alpha lipoic acid 600 mg capsule 600 mg PO ONCE 07/10/19 04/26/22 atorvastatin 10 mg tablet 10 mg PO DAILY 07/10/19 04/26/22 cholecalciferol (vitamin D3) 50 2,000 unit PO DAILY 07/10/19 04/26/22 mcg (2,000 unit) tablet diclofenac sodium 1 % topical gel 2 gm topical QID 07/10/19 04/26/22 (Voltaren) dorzolamide 2 % eye drops 1 drp ophthalmic (eye) TID 07/10/19 04/26/22 glimepiride 2 mg tablet 2 mg PO DAILY 07/10/19 04/26/22 metformin 1,000 mg tablet 1,000 mg PO BID 07/10/19 04/26/22 omega-3 fatty acids 1,000 mg 1,000 mg PO BID 07/10/19 04/26/22 capsule (Fish Oil Concentrate) vitamins B1 2.5 mg-B2 2.5 1 tab PO DAILY 07/10/19 04/26/22 mg-niacin 5 mg-B12 100 mcg-protease tablet (B-Complex With B-12) ibuprofen 800 mg tablet 800 mg PO BID PRN pain, moderate 06/12/20 04/26/22 #60 tabs clopidogrel 75 mg tablet 75 mg PO DAILY 12/16/21 04/26/22 dulaglutide 3 mg/0.5 mL 3 mg subcut QWEEK 12/16/21 04/26/22 subcutaneous pen injector (Trulicity) losartan 25 mg tablet 12.5 mg PO DAILY 12/16/21 04/26/22 magnesium oxide 500 mg capsule 250 mg PO DAILY 12/16/21 04/26/22 vitamin B complex 1 tab PO DAILY 12/16/21 04/26/22 cyclobenzaprine 5 mg tablet 5 mg PO QHS PRN muscle spasm #30 04/15/22 04/26/22 tabs diphenhydramine HCl 25 mg capsule 25 mg PO QHS 04/18/22 04/26/22 (Benadryl) doxylamine succinate 25 mg tablet 50 mg PO QHS 04/18/22 04/26/22 duloxetine 30 mg capsule,delayed 60 mg PO DAILY 04/18/22 04/26/22 release ondansetron HCl 4 mg tablet 4 mg PO Q8H PRN nausea and 04/18/22 04/26/22 vomiting #30 tabs pregabalin 75 mg capsule (Lyrica) 150 mg PO TID 04/18/22 04/26/22 furosemide 40 mg tablet 40 mg PO QAM #30 tabs 04/20/22 04/26/22 polyethylene glycol 3350 17 17 g PO .daily-bid #850 grams 04/20/22 04/26/22 gram/dose oral powder (Miralax) spironolactone 100 mg tablet 100 mg PO QAM #30 tabs 04/20/22 04/26/22 oxycodone 5 mg tablet 5 mg PO Q8H PRN severe pain 04/22/22 04/26/22 suspected to be cancer-liver w ascites #63 tabs trazodone 50 mg tablet See Rx Instructions PO QHS PRN 04/22/22 04/26/22 sleep #60 tabs fentanyl 12 mcg/hr transdermal 1 patch transdermal Q72H malignant 04/26/22 04/26/22 patch pain #5 ea Previous Rx's Medication Instructions Recorded ibuprofen 800 mg tablet 800 mg PO BID PRN pain, moderate 06/12/20 #60 tabs cyclobenzaprine 5 mg tablet 5 mg PO QHS PRN muscle spasm #30 04/15/22 tabs ondansetron HCl 4 mg tablet 4 mg PO Q8H PRN nausea and 04/18/22 vomiting #30 tabs furosemide 40 mg tablet 40 mg PO QAM #30 tabs 04/20/22 polyethylene glycol 3350 17 17 g PO .daily-bid #850 grams 04/20/22 gram/dose oral powder (Miralax) spironolactone 100 mg tablet 100 mg PO QAM #30 tabs 04/20/22 oxycodone 5 mg tablet 5 mg PO Q8H PRN severe pain 04/22/22 suspected to be cancer-liver w ascites #63 tabs trazodone 50 mg tablet See Rx Instructions PO QHS PRN 04/22/22 sleep #60 tabs fentanyl 12 mcg/hr transdermal 1 patch transdermal Q72H malignant 04/26/22 patch pain #5 ea Allergies Allergy/AdvReac Type Severity Reaction Status Date / Time No Known Drug Allergies Allergy Verified 04/22/22 15:52 General Stated Complaint: GenMedical JORGITO: 3 Review of Systems Constitutional Constitutional: Denies fever(s) and Reports weakness (generalized) Cardiovascular Cardiovascular: Denies chest pain and Reports dyspnea Respiratory Respiratory: Reports dyspnea Gastrointestinal Gastrointestinal: Denies abdominal pain, Reports nausea and Denies vomiting Musculoskeletal Musculoskeletal: Denies back pain Integumentary/Breasts Skin/Breast: Denies rash Neurologic Neurologic: Reports weakness (generalized) PFSH All Active Problems Pleural effusion, right (Acute) 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 (Acute) Palliative care patient (Acute) Impaired gait and mobility (Acute ~04/2022) walker Ascites of liver (Acute ~04/2022) Pleural effusion, right (Acute) Cirrhosis of liver (Acute ~04/2022) suggested on CT imaging Liver mass (Acute) Nausea (Acute ~04/2022) Ascites (Acute ~04/2022) Jaundice (Acute ~04/2022) Chronic neuropathic pain (Chronic) B/L feet--high dose Pregabalin Elevated LFTs (Acute ~04/2022) RUQ abdominal pain (Acute) Right-sided chest wall pain (Acute) Abnormal weight loss (Acute) SOB (shortness of breath) (Acute) Anemia (Chronic) Elevated lipids (Acute) HTN (hypertension) (Chronic) Hx of smoking (Acute) Hx-TIA (transient ischemic attack) (Acute) Pleural effusion, right (Acute ~04/2022) s/p thoracentesis Lesion of liver (Acute) Skin cancer, basal cell (Acute) Medical History Adhesive capsulitis of left shoulder (07/07/19) Bankart lesion of left shoulder (07/07/19) Bursitis of left shoulder (07/07/19) Diabetes mellitus, type 2 Dislocation of left shoulder joint (07/07/19) Impingement syndrome of left shoulder (07/07/19) Left rotator cuff tear (07/07/19) Neuropathy feet Osteoarthritis Osteoarthritis of left knee Right rotator cuff tendonitis Tendinitis of long head of biceps brachii of left shoulder (07/07/19) Trigger finger, left middle finger Trigger finger, left ring finger Vertigo Surgical History H/O cataract removal with insertion of prosthetic lens alix. Replacement of total knee joint (04/30/12) right knee Family History Father Diabetes Heart disease Sister Diabetes Liver cancer Mother Breast cancer Daughter Cancer Social History Smoking/Tobacco Use Status: Former Tobacco Use Smoking risk assessment performed?: Yes Alcohol Intake: current Alcohol Intake frequency: a few times a week Alcohol type: hard liquor Drug use: Never Substance use type: does not use Adopted: No Caregiver/Support person: No Foster care: No Household members: spouse Housing: house Number of Children: 3 number of grandchildren: 7 Communication Needs: None Education Level: high school Do you need help understanding health information?: Often current occupation: Retired Pets and animals: No Sexually active: No Do you think of yourself as: straight/heterosexual Current gender identity: male What is your relationship status?: How often do you talk on the phone with friends or family?: three or more times per week How often do you get together with friends or relatives?: three or more times per week Do you belong to any clubs or organized social groups?: yes Panel score (0-1 are the most socially isolated patients): 3 Shwetha/Druze: Taoism Special shwetha needs: No Seatbelt use: always Helmet use: Yes Helmet use: always Drive intox or ride w/intox driver starting gate: No Do you feel safe at home: Yes Do you feel safe in your relationship?: Yes Exam Const General: cooperative, comfortable and no acute distress Orientation: alert, awake and oriented x3 HENMT Head: normal to inspection, normocephalic and atraumatic Mouth: moist mucous membranes Eyes Conjunctivae: conjunctivae normal Other: Scleral icterus Neck Neck: normal visual inspection, full ROM, no meningeal signs, trachea midline and supple Resp Effort & Inspection: normal respiratory effort and able to speak in complete sentences Auscultation: diminished lung sounds bilaterally throughout (Worse on the right) Cardio Rate: regular rate Rhythm: regular rhythm GI Inspection: distended (Ascites) and obesity Palpation: soft, not firm and no guarding Auscultation: normal bowel sounds Back/Spine/Pelvis Back: No back tenderness Skin General skin exam: jaundice Neuro General: patient alert, patient awake, moves all extremities and no focal motor deficits Cognition: normal cognition Speech: speech normal Gait: normal gait Sensory Exam: no sensory deficits noted Extrem General: full ROM, capillary refill normal and pedal edema bilaterally pitting and 1+ Psych Appearance: grossly normal Mental Status: mental status grossly normal Course Vital Signs Vital signs: Vital Signs Temperature 36.3 C L 04/26/22 10:29 Pulse 83 04/26/22 10:29 Respiratory Rate 22 04/26/22 10:29 Blood Pressure 126/53 L 04/26/22 10:29 Pulse Oximetry 97 04/26/22 10:29 Temperature 36.3 C L 04/26/22 10:29 Temperature Source Temporal Artery Scan 04/26/22 10:29 Pulse 83 04/26/22 10:29 Respiratory Rate 22 04/26/22 10:29 Respiratory Effort Short of Breath 04/26/22 10:34 Blood Pressure 126/53 L 04/26/22 10:29 Blood Pressure Position Supine 04/26/22 10:29 Pulse Oximetry 97 04/26/22 10:29 Oxygen Delivery Method Room Air 04/26/22 10:29 Oxygen Flow Rate 0 04/26/22 10:29 Pain Level 0 04/26/22 10:29
--- NOTE | 2022-04-26 11:00 | DI.RAD_ITS ---
Exam(s) XR CHEST 2V PA LATERAL EXAM: XR CHEST 2V PA LATERAL CLINICAL HISTORY: Concern for pleural effusion. TECHNIQUE: 2D digital imaging was performed. COMPARISON: CR XR PORTABLE CHEST AP from 04/15/2022 FINDINGS: 2 views: Heart size is normal. The mediastinum is not widened. There is a moderate size pleural effusion on the right side. Platelike atelectasis noted in the righ t lung base. Platelike atelectasis also noted in the left lung base and this possibly a smaller left pleural effusion. IMPRESSION: Moderate size right pleural effusion. This was not evident on chest x-ray of 04/15/2022. DATA REPOSITORY: RADIATION DOSE DELIVERED:
[2022-04-26 11:11] LABS: Abs Immature Grans 0.02 10^3/uL (0.0-0.06); Absolute Basophil Count 0.02 10^3/uL (0.0-0.2); Absolute Eosinophil Count 0.07 10^3/uL (0.0-0.7); Absolute Lymphocyte Count 0.64 10^3/uL (1.2-3.4); Absolute Neutrophil Count 4.69 10^3/uL (1.2-6.7); Basophils % 0.3; Eosinophils % 1.2; HCT 33.4 % (40.0-50.0); Immature Grans % 0.3; Lymphocytes % 10.8; MCH 29.8 pg (27.0-33.0); MCHC 32.9 % (32.0-36.0); MCV 91 fL (80-95); MPV 11.7 fL (8.0-11.0); Monocytes % 8.4; Platelet Count 160 10^3/uL (130-400); RBC 3.69 10^6/uL (4.36-5.78); RDW 14.7 % (11.8-14.1); RDW-SD 48.8 fL; WBC 5.94 10^3/uL (4.4-10.8)
--- NOTE | 2022-04-26 11:18 | W.COLOREPORT ---
Date of service: 04/26/22 Time of Service: 11:18 Colonoscopy Report Date of procedure: 04/26/22 Pre-op diagnosis general: anemia Post-op diagnosis procedure note: other (severe diverticula of sigmoid/pandiverticula/lg cecal polyp) Surgeon: Janine Strickland Anesthesia Type: General:No Airway Estimated blood loss (mL): 2 Pathology: other Complications: None Prep: GoLYTELY Retraction Time: 15 mins
[2022-04-26 12:14] VITALS: RESP 14
--- NOTE | 2022-04-26 12:24 | SCONE_ITS ---
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 I discussed with the patient and family the findings on the MRI with him from [facility]. They showed peritoneal studding and diffuse tumor implants on the omentum and mesentery. There is a large 4cm implant that is pressing on the stomach. I think this is what is contributing to his feeling full and feeling like things are not going through. We also feel that her primary is gallbladder. With diffuse widely mets within the liver and within the abdominal cavity. He does have a small right pleural effusion today. He would like to have this tapped. Risks include bleeding infection complications from local anesthetics and pneumothorax. He would like to go home and not stay in the hospital. I did have long conversation with the patient, his and his granddaughter. From when I met him 2 weeks ago he has declined significantly. He is having trouble walking. He is not urinating despite being on high-dose diuretics. He is having trouble eating. He has proven +2 pitting edema of the lower extremities. His abdomen is quite distended. He actually says he does not feel too bad. But he does have pretty significant pain at night. I did discuss him with his PCP just, . He is meeting with Monique Anderson later on today. I do recommend that he go into hospice. He does have a PET scan and a meeting with oncology later next week. However he is declining very rapidly and I do not think he will be a good candidate for chemo and I recommend that he go into hospice 60 minutes is spent with the patient in consultation time (2) Pleural effusion, right: Status: Acute History of Present Illness Narrative: Patient presents to the ED today complaining of overall not feeling well. He notes decreased appetite. He notes he is having trouble swallowing and feels like food is not going down. Also he feels very distended and bloated. He did move his bowels today. He does feel a little short of breath. His granddaughter does report that he has had diminished urine output despite high- dose diuretic therapy. He also has pretty significant edema of the lower extremities. Patient reports he is having a hard time walking. I think he is having a lot of pain particularly in the back from the tumor. Patient states he has a hard time getting comfortable and sleeping because of the pain. 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 (Acute) Palliative care patient (Acute) Impaired gait and mobility (Acute ~04/2022) walker Ascites of liver (Acute ~04/2022) Pleural effusion, right (Acute) Cirrhosis of liver (Acute ~04/2022) suggested on CT imaging Liver mass (Acute) Nausea (Acute ~04/2022) Ascites (Acute ~04/2022) Jaundice (Acute ~04/2022) Chronic neuropathic pain (Chronic) B/L feet--high dose Pregabalin Elevated LFTs (Acute ~04/2022) RUQ abdominal pain (Acute) Right-sided chest wall pain (Acute) Abnormal weight loss (Acute) SOB (shortness of breath) (Acute) Anemia (Chronic) Elevated lipids (Acute) HTN (hypertension) (Chronic) Hx of smoking (Acute) Hx-TIA (transient ischemic attack) (Acute) Pleural effusion, right (Acute ~04/2022) s/p thoracentesis Lesion of liver (Acute) Skin cancer, basal cell (Acute) Medical History Adhesive capsulitis of left shoulder (07/07/19) Bankart lesion of left shoulder (07/07/19) Bursitis of left shoulder (07/07/19) Diabetes mellitus, type 2 Dislocation of left shoulder joint (07/07/19) Impingement syndrome of left shoulder (07/07/19) Left rotator cuff tear (07/07/19) Neuropathy feet Osteoarthritis Osteoarthritis of left knee Right rotator cuff tendonitis Tendinitis of long head of biceps brachii of left shoulder (07/07/19) Trigger finger, left middle finger Trigger finger, left ring finger Vertigo Surgical History H/O cataract removal with insertion of prosthetic lens alix. Replacement of total knee joint (04/30/12) right knee Family History Father Diabetes Heart disease Sister Diabetes Liver cancer Mother Breast cancer Daughter Cancer Social History Smoking/Tobacco Use Status: Former Tobacco Use Smoking risk assessment performed?: Yes Alcohol Intake: current Alcohol Intake frequency: a few times a week Alcohol type: hard liquor Drug use: Never Substance use type: does not use Adopted: No Caregiver/Support person: No Foster care: No Household members: spouse Housing: house Number of Children: 3 number of grandchildren: 7 Communication Needs: None Education Level: high school Do you need help understanding health information?: Often current occupation: Retired Pets and animals: No Sexually active: No Do you think of yourself as: straight/heterosexual Current gender identity: male What is your relationship status?: How often do you talk on the phone with friends or family?: three or more times per week How often do you get together with friends or relatives?: three or more times per week Do you belong to any clubs or organized social groups?: yes Panel score (0-1 are the most socially isolated patients): 3 Shwetha/Zoroastrian: Episcopalian Special shwetha needs: No Seatbelt use: always Helmet use: Yes Helmet use: always Drive intox or ride w/intox commercial trailer truck driver: No Do you feel safe at home: Yes Do you feel safe in your relationship?: Yes Exam HENNM Head: normal to inspection Ears: hearing grossly normal bilaterally Mouth: mucous membranes dry Teeth and gingiva: dentition normal Eyes Sclera: scleral abnormality (icteric ) Resp Effort & Inspection: normal respiratory effort and able to speak in complete sentences Auscultation: diminished lung sounds on the right and bilaterally in the lower lung taylor Other: L: clear GI Other: Abdomen does not appear to be distended. However it is soft and he has good bowel sounds. I did a bedside [id number] ultrasound. There is no ascites apparent. Bladder is collapsed. Extrem Other: He has +2 pitting edema of his lower extremities. This does extend all the way up to his hips. Results Last Vital Signs Temp 36.3 C L 04/26/22 10:29 Pulse 83 04/26/22 10:29 Resp 14 04/26/22 12:14 BP 126/53 L 04/26/22 10:29 Pulse Ox 97 04/26/22 10:29 Labs Result diagrams: 04/26/22 11:06 04/26/22 12:10 Labs: Laboratory Results - last 24 hr 04/26/22 04/26/22 04/26/22 11:06 11:06 11:06 WBC 5.94 RBC 3.69 L Hgb 11.0 L Hct 33.4 L MCV 91 MCH 29.8 MCHC 32.9 RDW 14.7 H Plt Count 160 MPV 11.7 H Immature Gran % 0.3 Neutrophils % 79.0 Lymphocytes % 10.8 Monocytes % 8.4 Eosinophils % 1.2 Basophils % 0.3 Nucleated RBC % 0.0 Absolute Neutrophils 4.69 Absolute Lymphocytes 0.64 L Absolute Monocytes 0.50 Absolute Eosinophils 0.07 Absolute Basophils 0.02 PT Cancelled INR Cancelled APTT Cancelled Sodium Cancelled Potassium Cancelled Chloride Cancelled Carbon Dioxide Cancelled Anion Gap Cancelled BUN Cancelled Creatinine Cancelled Est GFR (CKD-EPI 2020) Cancelled Glucose Cancelled Calcium Cancelled Total Bilirubin Cancelled AST Cancelled ALT Cancelled Alkaline Phosphatase Cancelled Total Protein Cancelled Albumin Cancelled Lipase Cancelled 04/26/22 04/26/22 11:48 11:48 WBC RBC Hgb Hct MCV MCH MCHC RDW Plt Count MPV Immature Gran % Neutrophils % Lymphocytes % Monocytes % Eosinophils % Basophils % Nucleated RBC % Absolute Neutrophils Absolute Lymphocytes Absolute Monocytes Absolute Eosinophils Absolute Basophils PT Cancelled INR Cancelled APTT Cancelled Sodium Cancelled Potassium Cancelled Chloride Cancelled Carbon Dioxide Cancelled Anion Gap Cancelled BUN Cancelled Creatinine Cancelled Est GFR (CKD-EPI 2020) Cancelled Glucose Cancelled Calcium Cancelled Total Bilirubin Cancelled AST Cancelled ALT Cancelled Alkaline Phosphatase Cancelled Total Protein Cancelled Albumin Cancelled Lipase Cancelled
[2022-04-26 12:30] LABS: ALT 231 U/L (16-63); AST 158 U/L (15-37); Albumin 2.8 g/dL (3.4-5.0); Alkaline Phosphatase 651 U/L (46-116); Anion Gap 9.6 mmol/L (3-11); BUN 31 mg/dL (7-18); Bilirubin, Total 3.3 mg/dL (0.2-1.0); CO2 24.4 mmol/L (21.0-32.0); CREATININE 1.2 mg/dL (0.70-1.30); Calcium 8.9 mg/dL (8.5-10.1); Chloride 105 mmol/L (98-107); Estimated GFR 64.25 (mL/min/1.73m2); Glucose 164 mg/dL (74-106); INR 1.1 (0.9-1.1); Lipase 402 U/L (73-393); PTT Activated 27.3 sec (21.0-27.5); Potassium 4.4 mmol/L (3.5-5.1); Prothrombin Time 11.2 sec (9.3-11.0); Sodium 139 mmol/L (136-145)
[2022-04-26] MEDS: Lidocaine 1% Pres-Free W/EPI 1/200,000 10 ML VIAL (12:45)
[2022-04-26] MEDS: Sodium Bicarbonate 50 MEQ/50 ML VIAL (12:45)
--- NOTE | 2022-04-26 12:53 | PDOC.DSDIS_ITS ---
Date of service: 04/26/22 Time of Service: 14:16 Discharge Plan Disposition Patient Disposition: HOME Other Facility: OR Condition: Good Discharge Details Reason For Visit: removal fliud from lung Attending Provider: Janine Strickland Primary Care Provider: Chastity Torres Home Meds and New Rx's Prescriptions: No Action clopidogrel 75 mg tablet 75 mg PO DAILY Hold Instructions: Resume on 05/03/22. Until you have your liver biopsy done. losartan 25 mg tablet 12.5 mg PO DAILY magnesium oxide 500 mg capsule 250 mg PO DAILY vitamin B complex Tablet 1 tab PO DAILY Trulicity 3 mg/0.5 mL pen injector 3 mg subcut QWEEK duloxetine 30 mg capsule,delayed release(DR/EC) 60 mg PO DAILY doxylamine succinate 25 mg tablet 50 mg PO QHS diphenhydramine HCl [Benadryl] 25 mg capsule 25 mg PO QHS pregabalin [Lyrica] 75 mg capsule 150 mg PO TID Label Comments: B/L foot neuropathy ondansetron HCl 4 mg tablet 4 mg PO Q8H PRN (Reason: nausea and vomiting) Qty: 30 0RF spironolactone 100 mg tablet 100 mg PO QAM Qty: 30 0RF Hold Instructions: Home Medication placed on hold at Doctor's office Rx Instructions: Ascites furosemide 40 mg tablet 40 mg PO QAM Qty: 30 0RF Hold Instructions: Home Medication placed on hold at Doctor's office Rx Instructions: Ascites polyethylene glycol 3350 [Miralax] 17 gram/dose powder 17 g PO .daily-bid Qty: 850 0RF Rx Instructions: Liver encephalopathy (confusion)-->goal BMs 1-2 per day atorvastatin 10 mg tablet 10 mg PO DAILY glimepiride 2 mg tablet 2 mg PO DAILY metformin 1,000 mg tablet 1,000 mg PO BID dorzolamide 2 % drops 1 drp OP TID diclofenac sodium [Voltaren] 1 % gel 2 gm TP QID B-Complex With B-12 2.5 mg-2.5 mg- 5 mg-100 mcg tablet 1 tab PO DAILY alpha lipoic acid 600 mg capsule 600 mg PO ONCE cholecalciferol (vitamin D3) 2,000 unit tablet 2,000 unit PO DAILY cyclobenzaprine 5 mg tablet 5 mg PO QHS PRN (Reason: muscle spasm) Qty: 30 4RF oxycodone 5 mg tablet 5 mg PO Q8H MDD 15mg/24h PRN (Reason: severe pain suspected to be cancer- liver w ascites) Qty: 63 0RF Rx Instructions: For severe pain trazodone 50 mg tablet See Rx Instructions PO QHS MDD 100mg/24h PRN (Reason: sleep) Qty: 60 0RF Rx Instructions: 50mg HS; may repeat 50mg x1 if first dose ineffective for sleep difficulty, orally every day at bedtime PRN; tamsulosin [Flomax] 0.4 MG capsule 0.4 mg PO HS Qty: 90 fentanyl 12 mcg/hr patch 72 hour 1 patch transdermal Q72H MDD 12mcg/hr/day Qty: 5 0RF morphine concentrate 100 mg/5 mL (20 mg/mL) solution See Rx Instructions PO Q1H PRN MDD 240 mg Qty: 30 0RF Rx Instructions: 0.25-1.0 ml orally every 1 hour, as needed; hospice lorazepam 1 mg tablet 1 mg PO Q4H PRN PRN (Reason: anxiety) Qty: 10 3RF Rx Instructions: hospice ibuprofen 800 mg tablet 800 mg PO BID PRN (Reason: pain, moderate) Qty: 60 0RF Discharge Instructions Additional Instructions: diet as tolerated. Consider protein supplements dialy -Miralax twice a day to prevent constipation. Fentyl patches will make you very constipated. May require some rescue milk of magnesia. Call office if require further drainage [phone] Fentyl 12mcg placed today. 13:00 04/26. It takes about 12 hour for it to kick in, so may need to take oral meds to cover until 1am 04/27. My office will contact you sometime this week and we will arrange to set up a Pleurx on May 03. Activity:: Activity as Tolerated Remove Dressings/Wound Care:: 24 hours Shower/Bathe:: 24 hours Diet:: As Tolerated Discharge Orders Discharge Orders: Discharge Order (Routine); Ordered 04/26/22 Ordered By: Janine Strickland Discharge Data Discharge Date/Time-TO BE ENTERED AT DEPARTURE: 04/26/22 13:52 Discharge Comment: Pt d/c'd with family in personal vehicle. 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
[2022-04-26 12:54] VITALS: BP 130/65; PULSE 81; RESP 18; TEMP 36.3; O2SAT 95
[2022-04-26] MEDS: fentaNYL 12 MCG PATCH TD (13:17)
--- NOTE | 2022-04-26 16:06 | ROE_ITS ---
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 Chest x-ray was reviewed prior to beginning the procedure.? Informed consent was obtained explaining risks and benefits of the procedure, including but not limited to bleeding, infection, pneumothorax, recurrence, complications of anesthesia, and other unforetold complications. Timeout is performed prior to beginning the procedure. ? PROCEDURE:? The patient is brought to the procedure room and placed in the seated position.? Ultrasound is used to localize the pocket on the right chest.? The area is marked and then prepped and draped in the usual sterile fashion using a ChloraPrep scrub solution.? 10 cc's of 1% Lidocaine is used to anesthetize the T10 interspace. ? The small becky is made with a #11 blade.? The needle and catheter is then inserted over the top of the rib, aspirating as it is inserted.? The needle is then removed.? The catheter is then hooked up to the Vacutainer system and 900 cc's of bilious fluid is evacuated.? The catheter is removed; pressure is held.? Sterile compression dressing is applied. Ultrasound shows good lung slide and no air. Pt is given instructions in wound care, activity, medications, and warning signs: SOB, increasing in pain, chest pain, redness or temperature- if these occur, come to ED. Did discuss with the patient and his family the results of the abdominal MRI that was done down at [facility]. The MRI does show that this is most likely gallbladder cancer with extensive hepatic metastases. Within the abdominal cavity, there is significant peritoneal studding noted, omental caking, large metastases throughout the mesentery and the abdominal cavity. And enlarged nodes. Patient has had a significant decline since I initially saw him on 04/02 3. He is developing significant amount of abdominal distention and pain. He has no appetite and is not able to eat. He feels full all the time. He has developed significant edema of the lower extremities and lower torso. He has recurrent malignant effusion on the right side, and increasing in pain. By the end of the day, he is no longer able to walk because of pain in his lower extremities and neuropathy. I discussed with the patient today the prognosis of this cancer which is quite poor and given his poor performance status he would not tolerate chemo well and would only prolong his suffering. I do recommend that he strongly consider hospice. They would be able more equipment and support. He is not even able to walk around the house by the end of the day and has issues getting to the toilet. Family notes significant decreased urine production. I did communicate this to his PCP Chastity Torres. And she was in contact with Dr. Modi. I did discuss placing a Pleurx catheter with the patient and his family. Patient is interested in this. We reviewed what is involved with placement how they would take care of it at home and side effects including but not limited to: Bleeding, infection, pneumonia, blood clots, pneumothorax, infection, damage to lungs or chest cavity, damage to liver, complications from anesthesia and inadvertent removal of the catheter. Patient is interested in having this placed and we will try to make arrangements for next Monday.
== END 2022-04-26 13:52 | disposition home or self-care (01) ==
LOC: ER 11:22 → SUR 12:17
PROVIDERS: Emergency Provider Physician Assistant; PCP Nurse Practitioner Adult Health; Visit Provider Surgery
PROC: (CPT 32554; principal; 2022-04-26 12:00)
DX: J90 Pleural effusion, not elsewhere classified (principal); C23 Malignant neoplasm of gallbladder; C78.6 Secondary malignant neoplasm of retroperitoneum and peritoneum; R06.02 Shortness of breath; Z86.73 Personal history of transient ischemic attack (TIA), and cerebral infarction without residual deficits; D64.9 Anemia, unspecified; R18.8 Other ascites; E11.9 Type 2 diabetes mellitus without complications; Z79.899 Other long term (current) drug therapy
CPT/HCPCS: 32554; 36415; 80053; 83690; 93005; 99285; 71046; 85025; 85610; 85730; 93010; 99284

== ENCOUNTER → 2022-04-29 15:04 | Outpatient (BNVA) | payer MEDICARE, SELFPAY | PROVIDERS: PCP Nurse Practitioner Adult Health; Referring Provider Nurse Practitioner Adult Health; Visit Provider Surgery | DX: J90 Pleural effusion, not elsewhere classified (principal); C23 Malignant neoplasm of gallbladder; K59.03 Drug induced constipation; T40.2X5A Adverse effect of other opioids, initial encounter | CPT/HCPCS: 99348 ==